=== PATIENT | male | born 1965 | race Caucasian/White ===

== ENCOUNTER 2017-12-23 13:47 | Emergency (ER) | payer MEDICARE, MEDICAID ==
[~2017-12-23] VITALS: Ht 180.3 cm; Wt 90.7 kg
[~2017-12-23 13:47] MED LIST: ALPRAZOLAM1 MG ORAL; AMOXICILLIN500 MG ORAL; ASPIRIN81 M1 PO; ATARAX25 MG ORAL; ATIVAN1 MG ORAL; ATIVAN1 MG PO; BUSPAR10 MG ORAL; CIPRO500 MG PO; CLARITIN-D 241 EACH PO; CLONAZEPAM2 MG PO; HYDROCHLOROTHIA25 MG PO; IBUPROFEN600 MG ORAL; NKM; PENICILLIN V P500 MG ORAL
[2017-12-23 14:31] VITALS: BP 149/90
[2017-12-23] MEDS ORDERED: Tetanus/Diptheria/Pertussis Vaccine 0.5ml Syr IM ONE (14:45)
[2017-12-23] MEDS ORDERED: HYDROcodone/Acetamin 7.5/325 tab ORAL ONE (14:45)
--- NOTE | 2017-12-23 15:56 | Emergency Room Report ---
History of Present Illness General Chief Complaint: Burn/Smoke Inhalation Source: Patient Present Illness HPI 52-year-old male presents to the emergency department complaining of 10 out of 10 in severity pain, erythema and blisters that have since popped 3 days. Patient reports that [place] and sustained sunburn to the bilateral anterior shins, ankle and foot. Patient reports pain is primarily on the right foot where he had 2 large blisters that he drain on its own. Patient reports progressive erythema, increased temperature to palpation and tenderness to palpation. Patient reports pain is exacerbated upon touch. He does not know what a tetanus vaccination is so he is unable to estimate when he last received one if at all. Denies CP, Palpitations, LOC, AMS, dizziness, Changes in Vision, Sensation, paresthesias, or a sudden severe headache. Allergies: Coded Allergies: No Known Allergies (Unverified , 06/26/12) Patient History Past Medical History: see triage record Past Surgical History: none Pertinent Family History: none Reviewed Nursing Documentation: PMH: Agreed; PSxH: Agreed Nursing Documentation-PMH Past Medical History: No History, Except For Hx Cardiac Problems: Yes Hx Hypertension: Yes Hx Neurological Problems: Yes - ANXIETY Review of Systems All Other Systems: negative except mentioned in HPI Physical Exam Vital Signs Date Time Temp Pulse Resp B/P (MAP) Pulse Ox O2 Delivery O2 Flow Rate FiO2 12/23/17 14:15 98.5 107 26 149/90 95 Room Air 98.4 Sp02 EP Interpretation: reviewed, normal General Appearance: no apparent distress, alert, GCS 15, non-toxic Head: normocephalic, atraumatic ENT: hearing grossly normal, normal voice Neck: full range of motion Respiratory: chest non-tender, lungs clear, normal breath sounds, speaking full sentences Cardiovascular #1: regular rate, rhythm, normal capillary refill Musculoskeletal: back normal, gait/station normal, normal range of motion, non- tender Neurologic: alert, oriented x3, responsive, motor strength/tone normal, sensory intact, speech normal, grossly normal Psychiatric: judgement/insight normal Skin: no rash, warm/dry, well hydrated, murphy - 2 -degree burn covering 4 % of the BSA, non-circumferential on the right anterior Guzman and dorsal foot. 2 large sized open bullae. and first degree erythema covering 4% of the left anterior guzman/ dorsal foot Medical Decision Making PA Attestation Dr. Hall is my supervising Physician whom patient management has been discussed with. Diagnostic Impression: Primary Impression: Sunburn of second degree Additional Impression: Cellulitis Qualified Codes: L03.90 - Cellulitis, unspecified ER Course 52-year-old male presents to the emergency department complaining of 10 out of 10 in severity pain, erythema and blisters that have since popped 3 days. Patient reports that he [place] the beach [place] 45 minutes and sustained sunburn to the bilateral anterior shins, ankle and foot. Patient reports pain is primarily on the right foot where he had 2 large blisters that he drain on its own. Patient reports progressive erythema, increased temperature to palpation and tenderness to palpation. Patient reports pain is exacerbated upon touch. He does not know what a tetanus vaccination is so he is unable to estimate when he last received one if at all. Denies CP, Palpitations, LOC, AMS, dizziness, Changes in Vision, Sensation, paresthesias, or a sudden severe headache. Ddx considered but are not limited to cellulitis, burn, Septic Joing, fracture, d/L, gout, fungal infection, DVT Vital signs: are WNL, pt. is afebrile H&PE are most consistent with : 2 -degree burn covering 4 % of the BSA, non- circumferential on the right anterior Guzman and dorsal foot. 2 large sized open bullae. and first degree erythema covering 4% of the left anterior guzman/ dorsal foot ORDERS: none required at this time, the diagnosis is clinical ED INTERVENTIONS: -Tetanus vaccination is administered Wound cleaning and irrigation performed Burn cream was applied Pain medication by mouth Sterile dressing applied by RN Discussed with this patient conservative treatment with antibiotics and burn cream discussed follow-up within 3-5 days with primary care provider. DISCHARGE: At this time pt. is stable for d/c to home. Will provide printed patient care instructions, and any necessary prescriptions. Care plan and follow up instructions have been discussed with the patient prior to discharge. Last Vital Signs Date Time Temp Pulse Resp B/P (MAP) Pulse Ox O2 Delivery O2 Flow Rate FiO2 12/23/17 14:52 98.4 12/23/17 14:31 107 26 149/90 95 Room Air Disposition: HOME, SELF-CARE Condition: Stable Scripts Ibuprofen* (MOTRIN*) 400 Mg Tablet 400 MG ORAL THREE TIMES A DAY, #20 TAB 0 Refills Prov: Alicia Gutierrez 12/23/17 Hydrocodone Bit/Acetaminophen 5-325* (NORCO 5-325*) 1 Each Tablet 1 TAB ORAL Q6H PRN for For Pain, #9 TAB 0 Refills Prov: Alicia Gutierrez 12/23/17 Silver Sulfadiazine (SILVADENE) 20 Gm Cream..g. 1 APPLIC TP BID, #20 GM Prov: Alicia Gutierrez 12/23/17 Trimethoprim/Sulfamethoxazole 160/800* (BACTRIM DS TABLET*) 1 Each Tablet 1 TAB ORAL TWICE A DAY for 7 Days, #14 TAB Prov: Alicia Gutierrez 12/23/17 Cephalexin* (KEFLEX*) 500 Mg Capsule 500 MG ORAL EVERY 12 HOURS for 7 Days, #14 CAP 0 Refills Prov: Alicia Gutierrez 12/23/17 Patient Instructions: Second-Degree Burn, Burn Care Additional Instructions: Take medications as directed. Follow up with a Primary Care Provider in 3-5 days, even if your symptoms have resolved. --Please review list of primary care clinics, if you do not already have a primary care provider Return sooner to ED if new symptoms occur, or current symptoms become worse. - Please note that this Emergency Department Report was dictated using [employer] unit operator technology software, occasionally this can lead to erroneous entry secondary to interpretation by the dictation equipment. Alicia Gutierrez Dec 23, 2017 15:56
[2017-12-23] MEDS ORDERED: BACTRIM DS TAB1 EAC1 ORAL (15:57)
[2017-12-23] MEDS ORDERED: CEPHALEXIN500 MG ORAL (15:57)
[2017-12-23] MEDS ORDERED: SILVADENE20 GM TP (15:57)
[2017-12-23] MEDS ORDERED: IBUPROFEN400 MG ORAL (16:02)
[2017-12-23] MEDS ORDERED: NORCO 5-325 TA1 EACH ORAL (16:02)
[2017-12-23 16:08] VITALS: BP 145/87
== END 2017-12-23 16:15 | disposition home or self-care (01) ==
LOC: EMR 16:11
DX: L55.1 Sunburn of second degree (principal); L03.116 Cellulitis of left lower limb; Z23 Encounter for immunization; I10 Essential (primary) hypertension; F41.9 Anxiety disorder, unspecified
CPT/HCPCS: 90471; 90715; 99284

== ENCOUNTER 2018-04-18 00:59 | Emergency (ER) | payer MEDICARE, MEDICAID ==
[~2018-04-18] VITALS: Ht 177.8 cm; Wt 88.5 kg
[~2018-04-18 00:59] MED LIST changes: +BACTRIM DS TAB1 EAC1 ORAL; +CEPHALEXIN500 MG ORAL; +IBUPROFEN400 MG ORAL; +NORCO 5-325 TA1 EACH ORAL; +SILVADENE20 GM TP
--- NOTE | 2018-04-18 01:26 | Emergency Room Report ---
History of Present Illness General Chief Complaint: Syncope Source: Patient Present Illness HPI Is a 53-year-old male with history anxiety and also alcohol abuse. He presents with chief complaint of syncopal. This occurred around 6 PM while he was at a grocery store applying for a job. He said he get very sweaty and dizzy. He said he passed out. Unknown trauma. He claimed hit his head but he does not remember. He is able to go home and got anxious tonight and call around his friend was told to come into the hospital be checked out. Denies any chest pain. Denies any nausea vomiting. Denies any palpitation. Allergies: Coded Allergies: No Known Allergies (Unverified , 06/26/12) Patient History Past Medical History: see triage record, old chart reviewed, HTN, psych hx Past Surgical History: other Pertinent Family History: none Social History: Reports: alcohol use Immunizations: other Reviewed Nursing Documentation: PMH: Agreed; PSxH: Agreed Nursing Documentation-PMH Hx Cardiac Problems: Yes Hx Hypertension: Yes Hx Neurological Problems: Yes - ANXIETY, bipolar Review of Systems Eye: Denies: eye pain, blurred vision ENT: Denies: ear pain, nose congestion, throat swelling Respiratory: Denies: cough, shortness of breath Cardiovascular: Reports: syncope; Denies: chest pain, palpitations Gastrointestinal: Denies: abdominal pain, diarrhea, nausea, vomiting Musculoskeletal: Denies: back pain, joint pain Skin: Denies: rash Neurological: Denies: headache, numbness Endocrine: Denies: increased thirst, increased urine Hematologic/Lymphatic: Denies: easy bruising All Other Systems: negative except mentioned in HPI Physical Exam Vital Signs Date Time Temp Pulse Resp B/P (MAP) Pulse Ox O2 Delivery O2 Flow Rate FiO2 04/18/18 01:03 98.6 113 18 133/86 97 Room Air 98.6 vitals with tachycardia Sp02 EP Interpretation: reviewed, normal General Appearance: well appearing, no apparent distress, alert Head: normocephalic, atraumatic Eyes: bilateral eye PERRL, bilateral eye EOMI ENT: hearing grossly normal, normal pharynx Neck: full range of motion, supple, no meningismus Respiratory: chest non-tender, lungs clear, normal breath sounds Cardiovascular #1: regular rate, rhythm, no murmur Gastrointestinal: normal bowel sounds, non tender, no mass, no organomegaly, no bruit, non-distended Musculoskeletal: back normal, gait/station normal, normal range of motion Psychiatric: anxious Skin: warm/dry Medical Decision Making Diagnostic Impression: Primary Impression: Syncope Qualified Codes: R55 - Syncope and collapse Additional Impressions: Alcohol intoxication Qualified Codes: F10.920 - Alcohol use, unspecified with intoxication, uncomplicated Alcohol abuse UTI (urinary tract infection) Qualified Codes: N30.00 - Acute cystitis without hematuria ER Course Patient presents with syncope. No evidence of any trauma. CT head is negative. He may have had anxiety/panic attack versus alcohol intoxication. We 'll discharge home. Lab Results Impression labs with elevated alcohol EKG Diagnostic Results Rate: normal Rhythm: NSR ST Segments: no acute changes Rhythm Strip Diag. Results Rhythm Strip Time: 01:25 EP Interpretation: yes Rate: 95 Rhythm: NSR, no PVC's, no ectopy CT/MRI/US Diagnostic Results CT/MRI/US Diagnostic Results : Imaging Test Ordered: ct head Impression negative per radiologist Last Vital Signs Date Time Temp Pulse Resp B/P (MAP) Pulse Ox O2 Delivery O2 Flow Rate FiO2 04/18/18 01:03 98.6 113 18 133/86 97 Room Air 98.6 Status: improved Disposition: HOME, SELF-CARE Condition: Stable Scripts Cephalexin* (KEFLEX*) 500 Mg Capsule 500 MG ORAL TID, #21 CAP Prov: AARON KHALIL M.D. 04/18/18 Patient Instructions: Syncope Additional Instructions: Stop using alcohol. Follow-up your doctor in 7 days. Return if worse. AARON KHALIL M.D. Apr 18, 2018 01:26
[2018-04-18 02:09] LABS: BASOPHILS % (AUTO) 0.8 % (0.0-2.0); EOSINOPHILS % (AUTO) 0.5 % (0.0-3.0); HEMATOCRIT 39.1 % (42.0-52.0); HEMOGLOBIN 14.3 G/DL (14.2-18.0); LYMPHOCYTES % (AUTO) 29.6 % (20.0-45.0); MEAN CORPUSCULAR VOLUME 106 FL (80-99); MONOCYTES % (AUTO) 10.9 % (1.0-10.0); NEUTROPHILS % (AUTO) 58.2 % (45.0-75.0); PLATELET COUNT 155 K/UL (150-450); RED BLOOD COUNT 3.69 M/UL (4.70-6.10); RED CELL DISTRIBUTION WIDTH 11.7 % (11.6-14.8); WHITE BLOOD COUNT 10.4 K/UL (4.8-10.8)
[2018-04-18 02:10] LABS: ANION GAP 16 mmol/L (5-15); BLOOD UREA NITROGEN 20 mg/dL (7-18); CALCIUM 9.9 MG/DL (8.5-10.1); CARBON DIOXIDE 22 MMOL/L (21-32); CHLORIDE 100 MMOL/L (98-107); CREATININE 1.4 MG/DL (0.55-1.30); POTASSIUM 3.7 MMOL/L (3.5-5.1); SODIUM 138 MMOL/L (136-145)
[2018-04-18 02:11] LABS: BILIRUBIN, URINE 1+ (NEGATIVE); GLUCOSE, URINE (UA) NEGATIVE (NEGATIVE); KETONES,URINE 1+ (NEGATIVE); LEUKOCYTE ESTERASE ,URINE 2+ (NEGATIVE); NITRITE,URINE NEGATIVE (NEGATIVE); PH,URINE 5 (4.5-8.0); PROTEIN,URINE 2+ (NEGATIVE); UROBILINOGEN,URINE 4 MG/DL (NORMAL)
[2018-04-18 02:12] LABS: APPEARANCE,URINE SLIGHTLY CLOUDY; COLOR,URINE YELLOW
[2018-04-18] MEDS ORDERED: CEPHALEXIN500 MG ORAL (03:18)
[2018-04-18 03:28] VITALS: BP_SYST 131; BP_SYST 133; BP_DIAS 86
--- NOTE | 2018-04-18 08:50 | Diagnostic Imaging Report ---
Indication: Syncope Technique: Continuous helical CT scanning of the head was performed utilizing automated exposure control without intravenous contrast material. Axial and coronal reconstructions were obtained. Comparison: 02/04/2013 CT dose: Total DLP 1417.26 mGycm; CTDI vol 70.38 mGy Findings: There is no acute intracranial hemorrhage, mass effect or cortical edema. The ventricles, cisterns and sulci are within normal limits for age and stable compared to the prior exam. The previously described hypodensities in the lauren and midbrain are not definitively seen and were likely artifactual. Visualized mastoid air cells and paranasal sinuses are unremarkable. No focal lesions of the bony calvarium or soft tissues of the scalp are seen. IMPRESSION: No evidence of acute intracranial hemorrhage, mass effect or cortical edema. MRI may be obtained for more sensitive evaluation as clinically indicated. The CT scanner at [facility] is accredited by the [employer] and the scans are performed using protocols designed to limit radiation exposure to as low as reasonably achievable to attain images of sufficient resolution adequate for diagnostic evaluation.
--- NOTE | 2018-04-19 16:08 | Cardiology Report ---
APPROVED REPORT EKG Measurement Heart [id number] Normal sinus rhythm Normal ECG
== END 2018-04-18 03:30 | disposition home or self-care (01) ==
LOC: EMR 03:28
DX: R55 Syncope and collapse (principal); F10.929 Alcohol use, unspecified with intoxication, unspecified; I10 Essential (primary) hypertension; F41.9 Anxiety disorder, unspecified; F31.9 Bipolar disorder, unspecified
CPT/HCPCS: 36415; 70450; 80048; 80307; 81001; 84484; 85025; 87086; 93005; 99284; G0480; 80329

== ENCOUNTER 2018-05-04 06:06 | Emergency (ER) | payer MEDICARE, MEDICAID ==
[~2018-05-04] VITALS: Ht 172.7 cm; Wt 90.7 kg
[2018-05-04 06:27] VITALS: BP 135/65
--- NOTE | 2018-05-04 06:38 | Emergency Room Report ---
History of Present Illness General Chief Complaint: General Complaint Source: Patient Present Illness HPI This patient is here c/o loud noise in his head that is preventing him from sleeping. He says he hasn't slept for two days. He also relates same information that he related on last visit two weeks ago which was likely anxiety. Today he is anxious but able to clearly communicate calmly. He denies hearing voices. He "requests an MRI of his head. Like we did last time." There is: no trauma, no fever, no headache, no neck pain. Pt. is compliant with his bp med. He takes another medicine "for his brain" but does not know the same. He has somewhere to stay. No cp, sob, abd pain, normal po intake, normal bm/uo. Allergies: Coded Allergies: No Known Allergies (Unverified , 06/26/12) Nursing Documentation-PMH Hx Cardiac Problems: Yes Hx Hypertension: Yes Hx Neurological Problems: Yes - ANXIETY, bipolar Review of Systems Constitutional: Reports: no symptoms Eye: Reports: no symptoms ENT: Reports: no symptoms Respiratory: Reports: no symptoms Cardiovascular: Reports: no symptoms Gastrointestinal: Reports: no symptoms Genitourinary: Reports: no symptoms Musculoskeletal: Reports: no symptoms Skin: Reports: no symptoms Psychiatric: Reports: no symptoms, see HPI, prior hx, anxiety Neurological: Reports: no symptoms Endocrine: Reports: no symptoms Hematologic/Lymphatic: Reports: no symptoms Allergic: Reports: no symptoms All Other Systems: negative except mentioned in HPI Physical Exam Vital Signs Date Time Temp Pulse Resp B/P (MAP) Pulse Ox O2 Delivery O2 Flow Rate FiO2 05/04/18 06:07 98.5 115 18 132/92 98 Room Air 98.4 Sp02 EP Interpretation: reviewed, normal General Appearance: normal inspection, well appearing, no apparent distress, alert, GCS 15, non-toxic Head: normocephalic, atraumatic Eyes: bilateral eye normal inspection, bilateral eye PERRL, bilateral eye EOMI ENT: normal ENT inspection, hearing grossly normal, normal pharynx, no angioedema, normal voice, moist mucus membranes Neck: normal inspection, full range of motion, supple, no meningismus, no bony tend Respiratory: normal inspection, lungs clear, normal breath sounds, no rhonchi, no respiratory distress, no retraction, no accessory muscle use, no wheezing Cardiovascular #1: normal inspection, regular rate, rhythm, no edema Gastrointestinal: normal inspection, normal bowel sounds, non tender, soft, no mass, non-distended Musculoskeletal: gait/station normal, normal range of motion Neurologic: normal inspection, alert, oriented x3, responsive, motor strength/ tone normal Psychiatric: memory normal, no suicidal/homicidal ideation, anxious, other - not s/h/gravely disabled. cognitively intact. denies hallucinations. no pressured speech, no delusions, no flight of ideas. Suicide Risk Assessment: Suicidal Ideation: No Had intent to initiate attempt: No Pt's plan for suicide attempt: No Has means to complete attempt: No Skin: normal inspection, normal color, no rash, warm/dry Medical Decision Making Diagnostic Impression: Primary Impression: Bipolar disorder ER Course I offered patient to be evaluated for voluntary psych hosp. He refuses. He says he had a bad experience ([place]) in the past. Prefers d/c. Still wants an MRI. Last Vital Signs Date Time Temp Pulse Resp B/P (MAP) Pulse Ox O2 Delivery O2 Flow Rate FiO2 05/04/18 06:27 97.7 14 135/65 99 Room Air 97.7 05/04/18 06:07 115 Disposition: HOME, SELF-CARE Condition: Stable Patient Instructions: Bipolar Disorder Osiel Mack M.D. May 04, 2018 06:38
[2018-05-04 06:58] VITALS: BP 147/84
[2018-05-04 07:25] VITALS: BP_SYST 132; BP_SYST 147; BP_DIAS 84
== END 2018-05-04 07:25 | disposition home or self-care (01) ==
LOC: EMR 06:40
DX: F31.9 Bipolar disorder, unspecified (principal); I10 Essential (primary) hypertension; I51.89 Other ill-defined heart diseases
CPT/HCPCS: 99282

== ENCOUNTER 2018-08-09 21:13 | Emergency (ER) | payer MEDICARE, MEDICAID ==
[~2018-08-09] VITALS: Ht 175.3 cm; Wt 90.7 kg
[2018-08-09] MEDS ORDERED: NKM (22:08)
[2018-08-09] MEDS ORDERED: Clindamycin 150mg cap ORAL ONE (22:15)
[2018-08-09] MEDS ORDERED: Bacitracin Oint UD TOPIC ONE (22:15)
[2018-08-09 22:20] VITALS: BP 132/80
[2018-08-09] MEDS ORDERED: CLINDAMYCIN HC300 MG ORAL (22:29)
[2018-08-09] MEDS ORDERED: BACITRACIN15 GM TOPIC (22:32)
[2018-08-09 22:37] VITALS: BP 132/80
--- NOTE | 2018-08-10 05:15 | Emergency Room Report ---
History of Present Illness General Chief Complaint: Skin Rash/Abscess Source: Patient Present Illness HPI 53-year-old male presents ED complaining of pain to his right ankle times one week. States that there is a cut to his right ankle which came from some new shoes which he did not take care of and now got progressively worse. Pain is throbbing, 8 out of 10, nonradiating. Denies fevers or chills. Denies history of diabetes. Denies any discharge. No other aggravating relieving factors. Denies any other associated symptoms Allergies: Coded Allergies: No Known Allergies (Unverified , 06/26/12) Patient History Past Medical History: HTN, psych hx Past Surgical History: none Pertinent Family History: none Social History: Denies: smoking, alcohol use, drug use Immunizations: UTD Reviewed Nursing Documentation: PMH: Agreed; PSxH: Agreed Nursing Documentation-PMH Past Medical History: No History, Except For Hx Cardiac Problems: Yes Hx Hypertension: Yes Hx Neurological Problems: Yes - ANXIETY, bipolar Review of Systems All Other Systems: negative except mentioned in HPI Physical Exam Vital Signs Date Time Temp Pulse Resp B/P (MAP) Pulse Ox O2 Delivery O2 Flow Rate FiO2 08/09/18 22:03 98.1 100 18 123/77 95 Sp02 EP Interpretation: reviewed, normal General Appearance: no apparent distress, alert, GCS 15, non-toxic Head: normocephalic Eyes: bilateral eye normal inspection, bilateral eye PERRL ENT: normal ENT inspection Neck: normal inspection Respiratory: normal inspection Cardiovascular #1: normal inspection Gastrointestinal: normal inspection Rectal: deferred Genitourinary: normal inspection Musculoskeletal: swelling - R ankle Neurologic: alert, oriented x3, responsive, motor strength/tone normal, sensory intact, speech normal Psychiatric: judgement/insight normal, memory normal, mood/affect normal, no suicidal/homicidal ideation Skin: other - 1cm ulceration to R ankle, surrounding erythema/induration. no fluctuance or discharge Lymphatic: normal inspection Medical Decision Making Diagnostic Impression: Primary Impression: Cellulitis of foot ER Course Hospital Course 53-year-old male presents to ED with redness, swelling to right ankle Differential diagnoses include: Cellulitis, dermatitis, insect bite, abscess Clinical course Patient placed on stretcher. After initial history, physical exam reveals a middle aged male in no acute distress. On exam there is a ulceration to the R ankle with surrounding erythema and induration. There is no fluctuance. Full range of motion is noted in the right ankle and there is no concern for any signs of infection to the joint. Discussed findings with patient. Will require antibiotics. However patient is afebrile and nontoxic. Patient is a candidate for outpatient antibiotics. Wound cleaned and bacitracin applied. Dressing applied. safe for discharge with close outpatient followup Diagnosis - cellulitis of foot stable and discharged to home with prescription for clindamycin, bacitracin. Instructed to followup with PMD. Instructed return to ED if symptoms recur or worsen Last Vital Signs Date Time Temp Pulse Resp B/P (MAP) Pulse Ox O2 Delivery O2 Flow Rate FiO2 08/09/18 22:37 98.0 78 18 132/80 98 Status: improved Disposition: HOME, SELF-CARE Condition: Stable Scripts Bacitracin (Bacitracin) 28.4 Gm Oint...g. 1 APPLIC TOPIC THREE TIMES A DAY, #28.4 GM Prov: Nate Geronimo MD 08/09/18 Clindamycin Hcl (CLINDAMYCIN HCL) 300 Mg Capsule 300 MG ORAL THREE TIMES A DAY, #21 CAP Prov: Nate Geronimo MD 08/09/18 Referrals: NOT CHOSEN IPA/,REFERRING (PCP) Patient Instructions: Abscess, Psil-vn-Dmao Nate Geronimo MD Aug 10, 2018 05:15
== END 2018-08-09 22:37 | disposition home or self-care (01) ==
LOC: EMR 22:00
DX: L03.115 Cellulitis of right lower limb (principal); I10 Essential (primary) hypertension; F41.9 Anxiety disorder, unspecified
CPT/HCPCS: 99283

== ENCOUNTER 2018-08-13 00:15 | Emergency (ER) | payer MEDICARE, MEDICAID ==
[~2018-08-13] VITALS: Ht 175.3 cm; Wt 90.7 kg
[~2018-08-13 00:15] MED LIST changes: +BACITRACIN15 GM TOPIC; +CLINDAMYCIN HC300 MG ORAL
[2018-08-13 00:45] VITALS: BP 147/89
--- NOTE | 2018-08-13 00:45 | Emergency Room Report ---
History of Present Illness General Chief Complaint: To Be Triaged Source: Patient Present Illness HPI Pt. was here two days ago for same. He started antibiotics yesterday. He thinks it is not better yet so he returned to ED. He has not been elevating leg. No fever. No additional injury/trauma. No cp, sob. Allergies: Coded Allergies: No Known Allergies (Unverified , 06/26/12) Patient History Past Medical History: see triage record Social History: Reports: alcohol use Nursing Documentation-PMH Hx Cardiac Problems: Yes Hx Hypertension: Yes Hx Neurological Problems: Yes - ANXIETY, bipolar Review of Systems Constitutional: Reports: see HPI Eye: Reports: no symptoms ENT: Reports: no symptoms Respiratory: Reports: no symptoms Cardiovascular: Reports: no symptoms Gastrointestinal: Reports: no symptoms Genitourinary: Reports: no symptoms Musculoskeletal: Reports: see HPI Skin: Reports: no symptoms Psychiatric: Reports: no symptoms Neurological: Reports: no symptoms Endocrine: Reports: no symptoms Hematologic/Lymphatic: Reports: no symptoms Allergic: Reports: no symptoms All Other Systems: negative except mentioned in HPI Physical Exam Sp02 EP Interpretation: reviewed, normal General Appearance: normal inspection, well appearing, no apparent distress, alert, GCS 15, non-toxic Head: normocephalic, atraumatic Eyes: bilateral eye normal inspection, bilateral eye PERRL, bilateral eye EOMI ENT: normal ENT inspection, hearing grossly normal, normal pharynx, no angioedema, normal voice, moist mucus membranes Neck: normal inspection, full range of motion, supple, no meningismus, no bony tend Respiratory: normal inspection, lungs clear, normal breath sounds, no rhonchi, no respiratory distress, no retraction, no accessory muscle use, no wheezing Cardiovascular #1: normal inspection, regular rate, rhythm, no edema Gastrointestinal: normal inspection, normal bowel sounds, non tender, soft, no mass, non-distended Musculoskeletal: gait/station normal, swelling, other - chronic venous changes lower half left leg, +mild swelling/erythema. no warmth, no fluctuance Neurologic: normal inspection, alert, oriented x3, responsive, motor strength/ tone normal Psychiatric: normal inspection, memory normal, no delusions, anxious, other - mild alcohol intoxication; limited insight, poor judgment Suicide Risk Assessment: Suicidal Ideation: No Had intent to initiate attempt: No Pt's plan for suicide attempt: No Has means to complete attempt: No Skin: normal inspection, normal color, no rash, warm/dry Medical Decision Making Diagnostic Impression: Primary Impression: Cellulitis of foot Additional Impressions: Bipolar disorder Alcohol abuse ER Course Pt. advised to 1. keep taking antibiotics as prescribed 2. elevate leg 3. stop drinking 4. f/u PMD (not ED) next week Disposition: HOME, SELF-CARE Condition: Stable Referrals: NON PHYSICIAN (PCP) Patient Instructions: Cellulitis, [id number] Osiel Mcak M.D. Aug 13, 2018 00:45
[2018-08-13 00:53] VITALS: BP 147/89
== END 2018-08-13 00:53 | disposition home or self-care (01) ==
LOC: EMR 00:39
DX: L03.119 Cellulitis of unspecified part of limb (principal); F31.9 Bipolar disorder, unspecified; F10.10 Alcohol abuse, uncomplicated; F41.9 Anxiety disorder, unspecified; I10 Essential (primary) hypertension
CPT/HCPCS: 99282

== ENCOUNTER 2018-08-21 04:17 | Emergency (ER) | payer MEDICARE, MEDICAID ==
[~2018-08-21] VITALS: Ht 180.3 cm; Wt 90.7 kg
[2018-08-21 04:30] VITALS: BP 147/94
--- NOTE | 2018-08-21 04:52 | Emergency Room Report ---
History of Present Illness General Chief Complaint: Skin Rash/Abscess Present Illness HPI Mr. Mcgrath is a very pleasant gentleman with history of bipolar affective disorder, alcohol abuse who presents with left lower extremity rash. Recently completed course of Cleocin oral antibiotics and bacitracin ointment. Also completed a course of cephalexin. He is concerned possible allergic reaction because he spots on his chest in upper leg. He has ulcer and redness at the left foot. He understands his health has not been ideal due to his alcohol use. Allergies: Coded Allergies: No Known Allergies (Unverified , 06/26/12) Patient History Past Medical History: old chart reviewed Social History: Reports: alcohol use Reviewed Nursing Documentation: PMH: Agreed; PSxH: Agreed Nursing Documentation-PMH Hx Cardiac Problems: Yes Hx Hypertension: Yes Hx Neurological Problems: Yes - ANXIETY, bipolar Review of Systems Constitutional: Denies: fever, malaise Skin: Reports: rash Physical Exam Vital Signs Date Time Temp Pulse Resp B/P (MAP) Pulse Ox O2 Delivery O2 Flow Rate FiO2 08/21/18 04:27 97.9 114 16 147/94 96 Room Air Sp02 EP Interpretation: reviewed, normal General Appearance: normal inspection, well appearing, no apparent distress, alert, GCS 15, non-toxic Head: normocephalic, atraumatic ENT: hearing grossly normal, normal pharynx, no angioedema, normal voice Neck: normal inspection, full range of motion, supple Respiratory: normal inspection, no respiratory distress Neurologic: alert, oriented x3 Psychiatric: normal inspection, judgement/insight normal, memory normal Skin: other - Healing ulcer left lateral heel with erythema involving the feet , papular rash involving his upper leg thigh and chest Medical Decision Making Diagnostic Impression: Primary Impression: Cellulitis of foot Additional Impression: Contact dermatitis ER Course Mr. Mcgrath has obvious cellulitis of foot. Suspect papular rash to be contact dermatitis. rx: bactrim , hydrocortisone cream Last Vital Signs Date Time Temp Pulse Resp B/P (MAP) Pulse Ox O2 Delivery O2 Flow Rate FiO2 08/21/18 04:30 97.9 100 16 147/94 96 Room Air Disposition: HOME, SELF-CARE Referrals: NOT CHOSEN IPA/,REFERRING (PCP) Isabela Lemus MD Aug 21, 2018 04:52
[2018-08-21] MEDS ORDERED: BACTRIM DS TAB1 EAC1 ORAL (04:54)
[2018-08-21] MEDS ORDERED: ANTI-ITCH28 G1 TP (04:54)
[2018-08-21 05:01] VITALS: BP 147/94
== END 2018-08-21 05:00 | disposition home or self-care (01) ==
LOC: EMR 04:40
DX: L25.9 Unspecified contact dermatitis, unspecified cause (principal); L03.116 Cellulitis of left lower limb; I10 Essential (primary) hypertension; F41.9 Anxiety disorder, unspecified; F31.9 Bipolar disorder, unspecified
CPT/HCPCS: 99282

== ENCOUNTER 2018-11-09 08:55 | Emergency (ER) | payer MEDICARE, MEDICAID ==
[~2018-11-09] VITALS: Ht 175.3 cm; Wt 90.7 kg
[~2018-11-09 08:55] MED LIST changes: +ANTI-ITCH28 G1 TP
[2018-11-09] MEDS ORDERED: ATENOLOL25 MG ORAL (09:10)
--- NOTE | 2018-11-09 09:15 | NUR ---
ED Nurse Note: PT WALKED IN TO ER TODAY FROM HOME. AOX4. PT C/O DARK SPOTS THAT FORMED ON BILATERAL UPPER ARMS AND LEFT LEG X 2 DAYS AGO. PT DENIES ITCHING, PAIN OR DISCHARGE. SKIN IS CLEAN, DRY, AND INTACT. SPOTS NOT ELEVATED.
[2018-11-09 09:18] VITALS: BP 136/92
[2018-11-09 09:36] VITALS: BP 138/88
--- NOTE | 2018-11-09 09:37 | NUR ---
ED Nurse Note: PT LAYING PEACEFULLY IN BED IN NAD. AOX4. DISCHARGE PAPERWORK EXPLAINED TO PT. PT VERBALIZES UNDERSTANDING AND ALL QUESTIONS ANSWERED. PT REFUSED TO SIGN DISCHARGE PAPERWORK AFTER IT WAS EXPLAINED AND ALL QUESTIONS WERE ANSWERED. PT WALKED OUT OF ER WITH STEADY GAIT AND ALL BELONGINGS.
--- NOTE | 2018-11-11 20:06 | Emergency Room Report ---
History of Present Illness General Chief Complaint: Skin Rash/Abscess Source: Patient Present Illness HPI Patient is a 53-year-old male presented after increased skin rash. Patient states that he had been concerned that he had cancer to the skin. Patient had noticed some changes in the mole. He denies any fever. He reports having multiple small skin lesions. He reports having family history of skin cancer. He denies any acute injury pain or swelling.. Patient states he had noted more dark lesions to his right upper extremity. Allergies: Coded Allergies: No Known Allergies (Unverified , 06/26/12) Patient History Past Medical History: see triage record Reviewed Nursing Documentation: PMH: Agreed; PSxH: Agreed Nursing Documentation-PMH Past Medical History: No History, Except For Hx Cardiac Problems: Yes Hx Hypertension: Yes Hx Neurological Problems: Yes - ANXIETY, bipolar Review of Systems All Other Systems: negative except mentioned in HPI Physical Exam Vital Signs Date Time Temp Pulse Resp B/P (MAP) Pulse Ox O2 Delivery O2 Flow Rate FiO2 11/09/18 08:58 98.2 95 17 148/100 99 Room Air General Appearance: well appearing, no apparent distress, alert, GCS 15, non- toxic Head: normocephalic, atraumatic ENT: hearing grossly normal, normal voice Neck: full range of motion, supple Respiratory: no respiratory distress, speaking full sentences Musculoskeletal: no calf tenderness Neurologic: normal inspection, alert, oriented x3, responsive, normal gait Psychiatric: mood/affect normal Skin: no rash, other - Multiple pigmented lesions to the right upper extremity. Medical Decision Making Diagnostic Impression: Primary Impression: Skin rash ER Course Patient presented for skin lesions. Differential diagnosis include was not limited to melanoma, solar lentigo, nevi among others. Patient has a benign exam and does not appear to require any further imaging or laboratory testing at this time. Patient does not have any definite acute medical condition. Patient was noted to have some concerning looking lesions and he was advised to follow-up with dermatology or a general surgeon. Patient does not appear to have any conditions requiring inpatient management at this time. Last Vital Signs Date Time Temp Pulse Resp B/P (MAP) Pulse Ox O2 Delivery O2 Flow Rate FiO2 11/09/18 09:36 98.3 86 17 138/88 99 Room Air Status: unchanged Disposition: HOME, SELF-CARE Condition: Stable Referrals: NOT CHOSEN IPA/MD,REFERRING (PCP) Patient Instructions: Rash Additional Instructions: Follow up with dermatology Dewayne Cheng MD Nov 11, 2018 20:06
== END 2018-11-09 09:35 | disposition home or self-care (01) ==
LOC: EMR 09:30
DX: R21 Rash and other nonspecific skin eruption (principal); I10 Essential (primary) hypertension; F41.9 Anxiety disorder, unspecified; F31.9 Bipolar disorder, unspecified
CPT/HCPCS: 99281

== ENCOUNTER 2019-02-05 19:56 | Inpatient (IN) | payer MEDICARE, MEDICAID ==
[~2019-02-05] VITALS: Ht 167.6 cm; Wt 74.8 kg
[~2019-02-05 19:56] MED LIST changes: +ATENOLOL25 MG ORAL
[2019-02-05 20:00] VITALS: BP 95/69
--- NOTE | 2019-02-05 20:00 | NUR ---
ED Nurse Note: pt came to ed from home c/o of vomiting x2 days and vomiting with blood x1 day. pt has left arms lacerations of unknown origin and old bruises on chest prior to arrival. pt denies any past medical history.
[2019-02-05 20:11] LABS: HEMATOCRIT 27.8 % (42.0-52.0); HEMOGLOBIN 10.1 G/DL (14.2-18.0); MEAN CORPUSCULAR VOLUME 105 FL (80-99); PLATELET COUNT 82 K/UL (150-450); RED BLOOD COUNT 2.66 M/UL (4.70-6.10); RED CELL DISTRIBUTION WIDTH 12.1 % (11.6-14.8); WHITE BLOOD COUNT 14.4 K/UL (4.8-10.8)
[2019-02-05] MEDS ORDERED: LORazepam Inj 2mg/ml 1ml IV ONE (20:15)
--- NOTE | 2019-02-05 20:15 | NUR ---
ED Nurse Note: reassessed pt about his past medical history post medication administration. pt was able to verbalize, HTN, anxiety, bipolar disorder, and previous alcoholism
--- NOTE | 2019-02-05 20:28 | Emergency Room Report ---
History of Present Illness General Chief Complaint: Gastrointestinal Bleed Source: Patient Present Illness HPI 54-year-old male presents ED for evaluation. Brought in by EMS for vomiting. Has had multiple episodes of vomiting over the last few days. Notes streaks of blood in his vomit today. denies abdominal pain. Denies any blood in stool. States he does drink alcohol occasionally. States he feels very anxious. History of anxiety. Denies drug use. No other aggravating relieving factors. Denies any other associated symptoms Allergies: Coded Allergies: No Known Allergies (Unverified , 06/26/12) Patient History Past Medical History: none, HTN, psych hx Past Surgical History: none Pertinent Family History: none Social History: Denies: smoking, alcohol use, drug use Immunizations: UTD Reviewed Nursing Documentation: PMH: Agreed; PSxH: Agreed Nursing Documentation-PMH Past Medical History: No History, Except For Hx Cardiac Problems: Yes Hx Hypertension: Yes Hx Neurological Problems: Yes - ANXIETY, bipolar Review of Systems All Other Systems: negative except mentioned in HPI Physical Exam Vital Signs Date Time Temp Pulse Resp B/P (MAP) Pulse Ox O2 Delivery O2 Flow Rate FiO2 02/05/19 19:54 97.7 109 18 110/70 (83) 98 Sp02 EP Interpretation: reviewed, normal General Appearance: no apparent distress, alert, GCS 15, non-toxic Head: normocephalic, atraumatic Eyes: bilateral eye normal inspection, bilateral eye PERRL ENT: hearing grossly normal, normal pharynx, no angioedema, normal voice Neck: full range of motion, supple/symm/no masses Respiratory: chest non-tender, lungs clear, normal breath sounds, speaking full sentences Cardiovascular #1: regular rate, rhythm, no edema Cardiovascular #2: 2+ carotid (R), 2+ carotid (L), 2+ radial (R), 2+ radial (L) , 2+ dorsalis pedis (R), 2+ dorsalis pedis (L) Gastrointestinal: normal bowel sounds, non tender, soft, non-distended, no guarding, no rebound Rectal: deferred Genitourinary: normal inspection, no CVA tenderness Musculoskeletal: back normal, gait/station normal, normal range of motion, non- tender Neurologic: alert, oriented x3, responsive, motor strength/tone normal, sensory intact, speech normal Psychiatric: judgement/insight normal, memory normal, no suicidal/homicidal ideation, anxious Reflexes: 3+ bicep (R), 3+ bicep (L), 3+ tricep (R), 3+ tricep (L), 3+ knee (R) , 3+ knee (L) Skin: normal color, no rash, warm/dry, well hydrated Lymphatic: no adenopathy Medical Decision Making Diagnostic Impression: Primary Impression: Upper GI bleed Additional Impression: Thrombocytopenia ER Course Hospital Course 54 yo M presents with vomiting blood. h/o anxiety and alcohol use Differential diagnoses include: UGIB, LGIB, hemorrhoids Clinical course Patient placed on stretcher. night monitor. After initial history and physical I ordered labs, IV fluids, pepcid, zofran Labs - noted leukocytosis, Hb 10.1, Platelets 82. BUN/Cr elevated. There is significant drop in hemoglobin compared to recent ER visits. Along with thrombocytopenia and vomiting blood patient will be admitted for upper GI bleed and further evaluation I feel this is a highly complex case requiring extensive working including EKG/ Rhythm strip, Xray/CT/US, Blood/urine lab work, repeat exams while in ED, and administration of strong opiates/narcotics for pain control, admission to hospital or close patient follow up. Diagnosis - UGIB, thrombocytopenia, Patient admitted to telemetry in serious condition Labs Test 02/05/19 20:02 02/06/19 07:35 02/07/19 05:35 White Blood Count 14.4 K/UL (4.8-10.8) 6.8 K/UL (4.8-10.8) 5.7 K/UL (4.8-10.8) Red Blood Count 2.66 M/UL (4.70-6.10) 2.06 M/UL (4.70-6.10) 2.39 M/UL (4.70-6.10) Hemoglobin 10.1 G/DL (14.2-18.0) 7.8 G/DL (14.2-18.0) 8.5 G/DL (14.2-18.0) Hematocrit 27.8 % (42.0-52.0) 22.1 % (42.0-52.0) 24.5 % (42.0-52.0) Mean Corpuscular Volume 105 FL (80-99) 107 FL (80-99) 102 FL (80-99) Mean Corpuscular Hemoglobin 37.9 PG (27.0-31.0) 37.8 PG (27.0-31.0) 35.5 PG (27.0-31.0) Mean Corpuscular Hemoglobin Concent 36.2 G/DL (32.0-36.0) 35.2 G/DL (32.0-36.0) 34.8 G/DL (32.0-36.0) Red Cell Distribution Width 12.1 % (11.6-14.8) 12.6 % (11.6-14.8) 17.2 % (11.6-14.8) Platelet Count 82 K/UL (150-450) 56 K/UL (150-450) 54 K/UL (150-450) Mean Platelet Volume 5.5 FL (6.5-10.1) 7.8 FL (6.5-10.1) 7.0 FL (6.5-10.1) Neutrophils (%) (Auto) % (45.0-75.0) % (45.0-75.0) % (45.0-75.0) Lymphocytes (%) (Auto) % (20.0-45.0) % (20.0-45.0) % (20.0-45.0) Monocytes (%) (Auto) % (1.0-10.0) % (1.0-10.0) % (1.0-10.0) Eosinophils (%) (Auto) % (0.0-3.0) % (0.0-3.0) % (0.0-3.0) Basophils (%) (Auto) % (0.0-2.0) % (0.0-2.0) % (0.0-2.0) Differential Total Cells Counted 100 100 100 Neutrophils % (Manual) 67 % (45-75) 58 % (45-75) 59 % (45-75) Lymphocytes % (Manual) 25 % (20-45) 37 % (20-45) 35 % (20-45) Monocytes % (Manual) 8 % (1-10) 5 % (1-10) 5 % (1-10) Eosinophils % (Manual) 0 % (0-3) 0 % (0-3) 1 % (0-3) Basophils % (Manual) 0 % (0-2) 0 % (0-2) 0 % (0-2) Band Neutrophils 0 % (0-8) 0 % (0-8) 0 % (0-8) Platelet Estimate Decreased Decreased Decreased Platelet Morphology Normal Normal Normal Red Blood Cell Morphology Normal Prothrombin Time 12.0 SEC (9.30-11.50) 12.0 SEC (9.30-11.50) 12.6 SEC (9.30-11.50) Prothromb Time International Ratio 1.1 (0.9-1.1) 1.1 (0.9-1.1) 1.2 (0.9-1.1) Activated Partial Thromboplast Time 23 SEC (23-33) 22 SEC (23-33) 22 SEC (23-33) Sodium Level 138 MMOL/L (136-145) 141 MMOL/L (136-145) 141 MMOL/L (136-145) Potassium Level 3.8 MMOL/L (3.5-5.1) 3.5 MMOL/L (3.5-5.1) 3.4 MMOL/L (3.5-5.1) Chloride Level 98 MMOL/L (98-107) 106 MMOL/L (98-107) 107 MMOL/L (98-107) Carbon Dioxide Level 25 MMOL/L (21-32) 30 MMOL/L (21-32) 25 MMOL/L (21-32) Blood Urea Nitrogen 39 mg/dL (7-18) 37 mg/dL (7-18) 20 mg/dL (7-18) Creatinine 1.4 MG/DL (0.55-1.30) 1.1 MG/DL (0.55-1.30) 1.0 MG/DL (0.55-1.30) Estimat Glomerular Filtration Rate 52.4 mL/min (>60) > 60 mL/min (>60) > 60 mL/min (>60) Glucose Level 217 MG/DL (74-106) 116 MG/DL (74-106) 96 MG/DL (74-106) Calcium Level 9.2 MG/DL (8.5-10.1) 8.3 MG/DL (8.5-10.1) 8.4 MG/DL (8.5-10.1) Total Bilirubin 1.4 MG/DL (0.2-1.0) 1.1 MG/DL (0.2-1.0) 0.9 MG/DL (0.2-1.0) Direct Bilirubin 0.4 MG/DL (0.0-0.3) 0.4 MG/DL (0.0-0.3) Aspartate Amino Transf (AST/SGOT) 83 U/L (15-37) 61 U/L (15-37) 186 U/L (15-37) Alanine Aminotransferase (ALT/SGPT) 49 U/L (12-78) 37 U/L (12-78) 90 U/L (12-78) Alkaline Phosphatase 60 U/L (46-116) 45 U/L (46-116) 52 U/L (46-116) Total Protein 7.4 G/DL (6.4-8.2) 6.2 G/DL (6.4-8.2) 6.5 G/DL (6.4-8.2) Albumin 3.0 G/DL (3.4-5.0) 2.7 G/DL (3.4-5.0) 2.9 G/DL (3.4-5.0) Globulin 4.4 g/dL 3.5 g/dL 3.6 g/dL Albumin/Globulin Ratio 0.7 (1.0-2.7) 0.8 (1.0-2.7) 0.8 (1.0-2.7) Lipase 216 U/L (73-393) 161 U/L (73-393) Serum Alcohol < 3 mg/dL Macrocytosis 1+ 1+ Anion Gap 6 mmol/L (5-15) 9 mmol/L (5-15) Amylase Level 104 U/L (25-115) Hypochromasia 2+ Anisocytosis 1+ Spherocytes 2+ Phosphorus Level 2.9 MG/DL (2.5-4.9) Magnesium Level 1.2 MG/DL (1.8-2.4) Last Vital Signs Date Time Temp Pulse Resp B/P (MAP) Pulse Ox O2 Delivery O2 Flow Rate FiO2 02/05/19 19:54 97.7 109 18 110/70 (83) 98 Status: improved Disposition: ADMITTED INPATIENT Condition: Serious Scripts Pantoprazole* (PANTOPRAZOLE*) 40 Mg Tablet.dr 40 MG ORAL EVERY 12 HOURS for 30 Days, TAB Prov: Stephen Bueno MD 02/07/19 Sucralfate* (CARAFATE*) 1 Gm Tablet 1 GM ORAL FOUR TIMES A DAY for 30 Days, TAB Prov: Stephen Bueno MD 02/07/19 Nate Geronimo MD February 05, 2019 20:28
--- NOTE | 2019-02-05 20:30 | NUR ---
ED Nurse Note: Friend, Alissa, is at bedside
[2019-02-05 20:53] LABS: ALANINE AMINOTRANSFERASE 49 U/L (12-78); ALBUMIN/GLOBULIN RATIO 0.7 (1.0-2.7); ALKALINE PHOSPHATASE 60 U/L (46-116); ASPARTATE AMINO TRANSFERASE 83 U/L (15-37); BILIRUBIN,TOTAL 1.4 MG/DL (0.2-1.0); BLOOD UREA NITROGEN 39 mg/dL (7-18); CALCIUM 9.2 MG/DL (8.5-10.1); CARBON DIOXIDE 25 MMOL/L (21-32); CREATININE 1.4 MG/DL (0.55-1.30)
[2019-02-05 20:58] LABS: BILIRUBIN,DIRECT 0.4 MG/DL (0.0-0.3)
--- NOTE | 2019-02-05 21:00 | NUR ---
ED Nurse Note: attempted telephone report endorsement, was unable to complete at this time. Per tele CRN, call back in 15 min
[2019-02-05 21:05] LABS: POTASSIUM 3.8 MMOL/L (3.5-5.1); SODIUM 138 MMOL/L (136-145)
[2019-02-05 21:06] LABS: CHLORIDE 98 MMOL/L (98-107)
[2019-02-05 21:14] LABS: INR 1.1 (0.9-1.1)
[2019-02-05] MEDS ORDERED: Miralax 17gm pkt ORAL PRN (21:15)
[2019-02-05] MEDS ORDERED: Phytonadione 10 MG in D5W 55 ML IVPB ONE (21:15)
[2019-02-05] MEDS ORDERED: Nitroglycerin Subl 0.4mg tab SL PRN (21:15)
[2019-02-05] MEDS ORDERED: Morphine Sulfate 2mg/ml Inj(IV/IM USE ONLY) IVP PRN (21:15)
[2019-02-05 21:30] VITALS: BP 96/69
--- NOTE | 2019-02-05 21:30 | NUR ---
ED Nurse Note: pt was brought to tele on scholastic aptitude test grader with sherman rn and james emt. pt shows no acute distress, denies pain at the moment, pt vss, skin intact except for left arm healed scratches of unknown origin present prior to arrival, pt is aox4, on room air.
--- NOTE | 2019-02-05 21:30 | NUR ---
NURSE NOTES: Received patient from ER from Beatrice ALMANZA. Patient ambulated from gurney to bed with assistance. Oriented patient to the unit. Bed locked, in low position, bed alarm on, call light within reach, girlfriend at bedside. Patient on room air, no s/s respiratory distress. Patient states "I feel better." No c/o pain, no c/o n/v. Patient has scars of old cuts on left forearm. Patient denies any SI/HI. Alert and oriented x 4, vital signs stable, placed on color television console monitor, sinus rhythm.
--- NOTE | 2019-02-05 22:30 | NUR ---
NURSE NOTES: Informed patient that he is NPO except ice chips, patient verbalized understanding.
[2019-02-05] MEDS: D5NS 1,000 ML IV SCH (22:52)
[2019-02-06] VITALS: BP 131/70
[2019-02-06 04:12] VITALS: BP 131/67
[2019-02-06] MEDS: D5NS 1,000 ML IV SCH ×3 (07:02→12:07)
--- NOTE | 2019-02-06 07:48 | NUR ---
HAND-OFF: Report given to Kacey ALMANZA. Patient in stable condition, plan of care endorsed.
--- NOTE | 2019-02-06 07:49 | NUR ---
NURSE NOTES: Received report from ARCHIE Hernandez. Patient resting in bed, A/O x4. Respiration even and non labored on room air. No SOB noted. IV patent and intact, running at RX dose. Side rails up x2. Safety precaution observed. Bed in lowest position and break engaged. Bed side table and call light within reach. Will continue plan of care.
[2019-02-06 08:00] VITALS: BP 110/71
[2019-02-06 08:05] LABS: HEMATOCRIT 22.1 % (42.0-52.0); HEMOGLOBIN 7.8 G/DL (14.2-18.0); MEAN CORPUSCULAR VOLUME 107 FL (80-99); PLATELET COUNT 56 K/UL (150-450); RED BLOOD COUNT 2.06 M/UL (4.70-6.10); RED CELL DISTRIBUTION WIDTH 12.6 % (11.6-14.8); WHITE BLOOD COUNT 6.8 K/UL (4.8-10.8)
[2019-02-06 08:16] LABS: INR 1.1 (0.9-1.1)
[2019-02-06 08:53] LABS: ALANINE AMINOTRANSFERASE 37 U/L (12-78); ALBUMIN 2.7 G/DL (3.4-5.0); ALBUMIN/GLOBULIN RATIO 0.8 (1.0-2.7); ALKALINE PHOSPHATASE 45 U/L (46-116); AMYLASE 104 U/L (25-115); ANION GAP 6 mmol/L (5-15); ASPARTATE AMINO TRANSFERASE 61 U/L (15-37); BILIRUBIN,TOTAL 1.1 MG/DL (0.2-1.0); BLOOD UREA NITROGEN 37 mg/dL (7-18); CALCIUM 8.3 MG/DL (8.5-10.1); CARBON DIOXIDE 30 MMOL/L (21-32); CHLORIDE 106 MMOL/L (98-107); CREATININE 1.1 MG/DL (0.55-1.30); POTASSIUM 3.5 MMOL/L (3.5-5.1); SODIUM 141 MMOL/L (136-145)
[2019-02-06 08:57] LABS: BILIRUBIN,DIRECT 0.4 MG/DL (0.0-0.3)
[2019-02-06] MEDS: BusPIRone 5mg Tab ORAL SCH ×3 (09:15→18:27)
[2019-02-06] MEDS: Atenolol 25mg tab ORAL SCH (09:15)
--- NOTE | 2019-02-06 10:18 | GI Initial Consult Note ---
History of Present Illness General Date patient seen: February 06, 2019 Time patient seen: 10:13 Reason for Hospitalization: Gastrointestinal Bleed Referring physician: JESSICA SY Reason for Consultation: UGIB Present Illness HPI 54-year-old male presents ED for evaluation. Brought in by EMS for vomiting. Has had multiple episodes of vomiting over the last few days. Notes streaks of blood in his vomit today. denies abdominal pain. Denies any blood in stool. States he does drink alcohol occasionally. States he feels very anxious. History of anxiety. Denies drug use. No other aggravating relieving factors. Denies any other associated symptoms GI consulted for reported upper GI bleed. Patient seen, awake alert and oriented x4, very anxious. The patient reported to have multiple episodes of vomiting over the past few days which he noted blood in his emesis. The patient denied any history of similar events. In addition the patient did note that his stools were very dark. The patient denies any abdominal pain at this time, has current complaint of nausea without vomiting. The patient has no history of endoscopic or colonoscopy. Patient presents today with hemoglobin 7.4. Home Meds Active Scripts Hydrocortisone 2% Cream (ANTI-ITCH 2% CREAM) Y Cr, 1 APPLIC TP BID for 14 Days, #30 GM Prov:Isabela Lemus MD 08/21/18 Trimethoprim/Sulfamethoxazole 160/800* (BACTRIM DS TABLET*) 1 Each Tablet, 1 TAB ORAL Q12H for 10 Days, #20 TAB 0 Refills Prov:Isabela Lemus MD 08/21/18 Bacitracin (Bacitracin) 28.4 Gm Oint...g., 1 APPLIC TOPIC THREE TIMES A DAY, # 28.4 GM Prov:Nate Geronimo MD 08/09/18 Clindamycin Hcl (CLINDAMYCIN HCL) 300 Mg Capsule, 300 MG ORAL THREE TIMES A DAY , #21 CAP Prov:Nate Geronimo MD 08/09/18 Cephalexin* (KEFLEX*) 500 Mg Capsule, 500 MG ORAL TID, #21 CAP Prov:Brendan Smith MD 04/18/18 Buspirone Hcl* (BUSPAR*) 10 Mg Tablet, 10 MG ORAL THREE TIMES A DAY, #30 TAB 0 Refills Prov:Brendan Smith MD 05/26/14 Reported Medications Atenolol* (TENORMIN*) 25 Mg Tablet, 25 MG ORAL DAILY, TAB 11/09/18 No Known Medications* (NKM - No Known Medications*) ., 0 ., 0 Refills 08/09/18 Med list reviewed/reconciled: Yes Allergies: Coded Allergies: No Known Allergies (Unverified , 06/26/12) Patient History History Provided By: Patient, Medical Record PMH Narrative Past Medical History: none, HTN, psych hx Past Surgical History: none Pertinent Family History: none Social History: Denies: smoking, alcohol use, drug use Immunizations: UTD Reviewed Nursing Documentation: PMH: Agreed; PSxH: Agreed Nursing Documentation-PMH Past Medical History: No History, Except For Hx Cardiac Problems: Yes Hx Hypertension: Yes Hx Neurological Problems: Yes - ANXIETY, bipolar Social History: Reports: smoking - Tobacco user, alcohol use - Occasional use Review of Systems All Other Systems: negative except mentioned in HPI Physical Exam Vital Signs Date Time Temp Pulse Resp B/P (MAP) Pulse Ox O2 Delivery O2 Flow Rate FiO2 02/05/19 19:54 97.7 109 18 110/70 (83) 98 02/05/19 20:00 Room Air Sp02 EP Interpretation: reviewed, normal Labs Laboratory Tests Test 02/05/19 20:02 02/06/19 07:35 White Blood Count 14.4 K/UL (4.8-10.8) H 6.8 K/UL (4.8-10.8) # Red Blood Count 2.66 M/UL (4.70-6.10) L 2.06 M/UL (4.70-6.10) L Hemoglobin 10.1 G/DL (14.2-18.0) L 7.8 G/DL (14.2-18.0) L Hematocrit 27.8 % (42.0-52.0) L 22.1 % (42.0-52.0) L Mean Corpuscular Volume 105 FL (80-99) H 107 FL (80-99) H Mean Corpuscular Hemoglobin 37.9 PG (27.0-31.0) H 37.8 PG (27.0-31.0) H Mean Corpuscular Hemoglobin Concent 36.2 G/DL (32.0-36.0) H 35.2 G/DL (32.0-36.0) Red Cell Distribution Width 12.1 % (11.6-14.8) 12.6 % (11.6-14.8) Platelet Count 82 K/UL (150-450) L 56 K/UL (150-450) L Mean Platelet Volume 5.5 FL (6.5-10.1) L 7.8 FL (6.5-10.1) Neutrophils (%) (Auto) % (45.0-75.0) % (45.0-75.0) Lymphocytes (%) (Auto) % (20.0-45.0) % (20.0-45.0) Monocytes (%) (Auto) % (1.0-10.0) % (1.0-10.0) Eosinophils (%) (Auto) % (0.0-3.0) % (0.0-3.0) Basophils (%) (Auto) % (0.0-2.0) % (0.0-2.0) Differential Total Cells Counted 100 Neutrophils % (Manual) 67 % (45-75) Pending Lymphocytes % (Manual) 25 % (20-45) Pending Monocytes % (Manual) 8 % (1-10) Eosinophils % (Manual) 0 % (0-3) Basophils % (Manual) 0 % (0-2) Band Neutrophils 0 % (0-8) Platelet Estimate Decreased L Pending Platelet Morphology Normal Pending Red Blood Cell Morphology Normal Prothrombin Time 12.0 SEC (9.30-11.50) H 12.0 SEC (9.30-11.50) H Prothromb Time International Ratio 1.1 (0.9-1.1) 1.1 (0.9-1.1) Activated Partial Thromboplast Time 23 SEC (23-33) 22 SEC (23-33) L Sodium Level 138 MMOL/L (136-145) 141 MMOL/L (136-145) Potassium Level 3.8 MMOL/L (3.5-5.1) 3.5 MMOL/L (3.5-5.1) Chloride Level 98 MMOL/L (98-107) 106 MMOL/L (98-107) Carbon Dioxide Level 25 MMOL/L (21-32) 30 MMOL/L (21-32) Blood Urea Nitrogen 39 mg/dL (7-18) H 37 mg/dL (7-18) H Creatinine 1.4 MG/DL (0.55-1.30) H 1.1 MG/DL (0.55-1.30) Estimat Glomerular Filtration Rate 52.4 mL/min (>60) > 60 mL/min (>60) Glucose Level 217 MG/DL (74-106) H 116 MG/DL (74-106) #H Calcium Level 9.2 MG/DL (8.5-10.1) 8.3 MG/DL (8.5-10.1) L Total Bilirubin 1.4 MG/DL (0.2-1.0) H 1.1 MG/DL (0.2-1.0) H Direct Bilirubin 0.4 MG/DL (0.0-0.3) H 0.4 MG/DL (0.0-0.3) H Aspartate Amino Transf (AST/SGOT) 83 U/L (15-37) H 61 U/L (15-37) H Alanine Aminotransferase (ALT/SGPT) 49 U/L (12-78) 37 U/L (12-78) Alkaline Phosphatase 60 U/L (46-116) 45 U/L (46-116) L Total Protein 7.4 G/DL (6.4-8.2) 6.2 G/DL (6.4-8.2) L Albumin 3.0 G/DL (3.4-5.0) L 2.7 G/DL (3.4-5.0) L Globulin 4.4 g/dL 3.5 g/dL Albumin/Globulin Ratio 0.7 (1.0-2.7) L 0.8 (1.0-2.7) L Lipase 216 U/L (73-393) 161 U/L (73-393) Serum Alcohol < 3 mg/dL Anion Gap 6 mmol/L (5-15) Amylase Level 104 U/L (25-115) General Appearance: well appearing, no apparent distress, alert Head: normocephalic EENT: PERRL/EOMI, normal ENT inspection Neck: supple Respiratory: normal breath sounds, no respiratory distress Cardiovascular: normal rate Gastrointestinal: normal inspection, non tender, soft, normal bowel sounds, non -distended Rectal: deferred Genitourinary: deferred Musculoskeletal: normal inspection, back normal Neurologic: normal inspection, alert, oriented x3, responsive Psychiatric: normal inspection, judgement/insight normal, memory normal Skin: normal inspection, normal color, no rash, warm/dry, palpation normal, well hydrated Lymphatic: normal inspection, no adenopathy Current Medications Current Medications Medications (Trade) Dose Ordered Sig/Benny Route PRN Reason Start Time Stop Time Status Last Admin Dose Admin Acetaminophen (Tylenol) 650 mg Q4H PRN ORAL fever 02/05/19 21:15 03/07/19 21:14 Atenolol (Tenormin) 25 mg DAILY ORAL 02/06/19 09:00 03/08/19 08:59 02/06/19 09:15 Buspirone HCl (Buspar) 10 mg THREE TIMES A DAY ORAL 02/06/19 09:00 03/08/19 08:59 02/06/19 09:15 Dextrose (Dextrose 50%) 25 ml Q30M PRN IV Hypoglycemia 02/05/19 21:15 03/07/19 21:14 Dextrose (Dextrose 50%) 50 ml Q30M PRN IV Hypoglycemia 02/05/19 21:15 03/07/19 21:14 Dextrose/Sodium Chloride 1,000 ml @ 100 mls/hr Q10H IV 02/05/19 21:02 03/07/19 21:01 02/06/19 09:16 Diphenhydramine HCl (Benadryl) 25 mg Q6H PRN ORAL Itching/Pruritis 02/05/19 21:15 03/07/19 21:14 Morphine Sulfate (Morphine Sulfate) 2 mg Q4H PRN IVP severe Pain (Pain Scale 7-10) 02/05/19 21:15 02/12/19 21:14 Nitroglycerin (Ntg) 0.4 mg Q5M X 3 DOSES PRN SL Prn Chest Pain 02/05/19 21:15 03/07/19 21:14 Ondansetron HCl (Zofran) 4 mg Q6H PRN IVP Nausea & Vomiting 02/05/19 21:15 03/07/19 21:14 Polyethylene Glycol (Miralax) 17 gm HSPRN PRN ORAL Constipation 02/05/19 21:15 03/07/19 21:14 Temazepam (Restoril) 15 mg HSPRN PRN ORAL Insomnia 02/05/19 21:15 02/12/19 21:14 02/06/19 02:01 GI: Plan Problems: (1) Gastrointestinal hemorrhage (2) Upper GI bleed (3) Alcohol abuse (4) Bipolar disorder Plan EGD scheduled for today. Maintain the patient n.p.o. plus IV fluids PPI PRN transfusions We will follow with additional recommendations postprocedure Discussed with Dr. Thomson. Thank you for this patient referral, we will follow. The patient was seen and examined at bedside and all new and available data was reviewed in the patients chart. I agree with the above findings, impression and plan. (Patient seen earlier today. Signature stamp does not reflect patient encounter time.). - MD Sarah StevensonArizona Spine And Joint HospitalRivas ZAMBRANO February 06, 2019 10:18
--- NOTE | 2019-02-06 11:34 | Consultation ---
History of Present Illness General Date patient seen: February 06, 2019 Chief Complaint: Gastrointestinal Bleed Referring physician: JESSICA SY Reason for Consultation: inpatient management Present Illness HPI 54-year-old male with hx of anxiety, bipolar, ETOH abuse presented to ED for evaluation of vomiting over the last few days. Notes streaks of blood in his vomit today. denies abdominal pain. Denies any blood in stool. States he feels very anxious. Denies any other associated symptoms. He is admitted to telemetry for further work up. Allergies: Coded Allergies: No Known Allergies (Unverified , 06/26/12) Medication History Scheduled Atenolol* (Tenormin*), 25 MG ORAL DAILY, (Reported) Bacitracin (Bacitracin), 1 APPLIC TOPIC THREE TIMES A DAY Buspirone Hcl* (Buspar*), 10 MG ORAL THREE TIMES A DAY Cephalexin* (Keflex*), 500 MG ORAL TID Clindamycin Hcl (Clindamycin Hcl), 300 MG ORAL THREE TIMES A DAY Hydrocortisone 2% Cream (Anti-Itch 2% Cream), 1 APPLIC TP BID No Known Medications* (NKM - No Known Medications*), 0 ., (Reported) Trimethoprim/Sulfamethoxazole 160/800* (Bactrim Ds Tablet*), 1 TAB ORAL Q12H Patient History Healthcare decision maker Resuscitation status Full Code Advanced Directive on File Past Medical/Surgical History Past Medical/Surgical History: (1) Bipolar disorder (2) Hypertension (3) anxiety Review of Systems All Other Systems: negative except mentioned in HPI Physical Exam General Appearance: WD/WN, no apparent distress Lines, tubes and drains: peripheral HEENT: normocephalic, atraumatic, anicteric Neck: non-tender, normal alignment Respiratory/Chest: chest wall non-tender, lungs clear Breasts: no masses Cardiovascular/Chest: normal peripheral pulses, normal rate Genitourinary/Rectal: normal genital exam Extremities: normal range of motion Skin Exam: normal pigmentation Last 24 Hour Vital Signs Date Time Temp Pulse Resp B/P (MAP) Pulse Ox O2 Delivery O2 Flow Rate FiO2 02/06/19 09:15 92 110/71 02/06/19 08:00 98.5 92 18 110/71 (84) 98 02/06/19 04:12 98.0 89 19 131/67 (88) 98 02/06/19 03:42 98 02/06/19 00:00 98.0 91 19 131/70 (90) 98 02/05/19 23:23 92 02/05/19 21:37 97.8 94 16 96/70 98 Room Air 02/05/19 21:30 98.1 91 17 96/69 (78) 97 02/05/19 21:30 Room Air 02/05/19 20:00 97.7 96 15 95/69 100 Room Air 02/05/19 20:00 96 15 02/05/19 19:54 97.7 109 18 110/70 (83) 98 Intake and Output 02/05/19 02/06/19 19:00 07:00 Intake Total 800 ml Output Total 0 ml Balance 800 ml Intake IV Total 800 ml Output Urine Total 0 ml # Voids 1 Laboratory Tests Test 02/05/19 20:02 02/06/19 07:35 White Blood Count 14.4 K/UL (4.8-10.8) H 6.8 K/UL (4.8-10.8) # Red Blood Count 2.66 M/UL (4.70-6.10) L 2.06 M/UL (4.70-6.10) L Hemoglobin 10.1 G/DL (14.2-18.0) L 7.8 G/DL (14.2-18.0) L Hematocrit 27.8 % (42.0-52.0) L 22.1 % (42.0-52.0) L Mean Corpuscular Volume 105 FL (80-99) H 107 FL (80-99) H Mean Corpuscular Hemoglobin 37.9 PG (27.0-31.0) H 37.8 PG (27.0-31.0) H Mean Corpuscular Hemoglobin Concent 36.2 G/DL (32.0-36.0) H 35.2 G/DL (32.0-36.0) Red Cell Distribution Width 12.1 % (11.6-14.8) 12.6 % (11.6-14.8) Platelet Count 82 K/UL (150-450) L 56 K/UL (150-450) L Mean Platelet Volume 5.5 FL (6.5-10.1) L 7.8 FL (6.5-10.1) Neutrophils (%) (Auto) % (45.0-75.0) % (45.0-75.0) Lymphocytes (%) (Auto) % (20.0-45.0) % (20.0-45.0) Monocytes (%) (Auto) % (1.0-10.0) % (1.0-10.0) Eosinophils (%) (Auto) % (0.0-3.0) % (0.0-3.0) Basophils (%) (Auto) % (0.0-2.0) % (0.0-2.0) Differential Total Cells Counted 100 Neutrophils % (Manual) 67 % (45-75) Pending Lymphocytes % (Manual) 25 % (20-45) Pending Monocytes % (Manual) 8 % (1-10) Eosinophils % (Manual) 0 % (0-3) Basophils % (Manual) 0 % (0-2) Band Neutrophils 0 % (0-8) Platelet Estimate Decreased L Pending Platelet Morphology Normal Pending Red Blood Cell Morphology Normal Prothrombin Time 12.0 SEC (9.30-11.50) H 12.0 SEC (9.30-11.50) H Prothromb Time International Ratio 1.1 (0.9-1.1) 1.1 (0.9-1.1) Activated Partial Thromboplast Time 23 SEC (23-33) 22 SEC (23-33) L Sodium Level 138 MMOL/L (136-145) 141 MMOL/L (136-145) Potassium Level 3.8 MMOL/L (3.5-5.1) 3.5 MMOL/L (3.5-5.1) Chloride Level 98 MMOL/L (98-107) 106 MMOL/L (98-107) Carbon Dioxide Level 25 MMOL/L (21-32) 30 MMOL/L (21-32) Blood Urea Nitrogen 39 mg/dL (7-18) H 37 mg/dL (7-18) H Creatinine 1.4 MG/DL (0.55-1.30) H 1.1 MG/DL (0.55-1.30) Estimat Glomerular Filtration Rate 52.4 mL/min (>60) > 60 mL/min (>60) Glucose Level 217 MG/DL (74-106) H 116 MG/DL (74-106) #H Calcium Level 9.2 MG/DL (8.5-10.1) 8.3 MG/DL (8.5-10.1) L Total Bilirubin 1.4 MG/DL (0.2-1.0) H 1.1 MG/DL (0.2-1.0) H Direct Bilirubin 0.4 MG/DL (0.0-0.3) H 0.4 MG/DL (0.0-0.3) H Aspartate Amino Transf (AST/SGOT) 83 U/L (15-37) H 61 U/L (15-37) H Alanine Aminotransferase (ALT/SGPT) 49 U/L (12-78) 37 U/L (12-78) Alkaline Phosphatase 60 U/L (46-116) 45 U/L (46-116) L Total Protein 7.4 G/DL (6.4-8.2) 6.2 G/DL (6.4-8.2) L Albumin 3.0 G/DL (3.4-5.0) L 2.7 G/DL (3.4-5.0) L Globulin 4.4 g/dL 3.5 g/dL Albumin/Globulin Ratio 0.7 (1.0-2.7) L 0.8 (1.0-2.7) L Lipase 216 U/L (73-393) 161 U/L (73-393) Serum Alcohol < 3 mg/dL Anion Gap 6 mmol/L (5-15) Amylase Level 104 U/L (25-115) Height (Feet): 5 Height (Inches): 7.00 Weight (Pounds): 150 Medications Current Medications Medications (Trade) Dose Ordered Sig/Benny Route PRN Reason Start Time Stop Time Status Last Admin Dose Admin Acetaminophen (Tylenol) 650 mg Q4H PRN ORAL fever 02/05/19 21:15 03/07/19 21:14 Atenolol (Tenormin) 25 mg DAILY ORAL 02/06/19 09:00 03/08/19 08:59 02/06/19 09:15 Buspirone HCl (Buspar) 10 mg THREE TIMES A DAY ORAL 02/06/19 09:00 03/08/19 08:59 02/06/19 09:15 Dextrose (Dextrose 50%) 25 ml Q30M PRN IV Hypoglycemia 02/05/19 21:15 03/07/19 21:14 Dextrose (Dextrose 50%) 50 ml Q30M PRN IV Hypoglycemia 02/05/19 21:15 03/07/19 21:14 Dextrose/Sodium Chloride 1,000 ml @ 100 mls/hr Q10H IV 02/05/19 21:02 03/07/19 21:01 02/06/19 09:16 Diphenhydramine HCl (Benadryl) 25 mg Q6H PRN ORAL Itching/Pruritis 02/05/19 21:15 03/07/19 21:14 Morphine Sulfate (Morphine Sulfate) 2 mg Q4H PRN IVP severe Pain (Pain Scale 7-10) 02/05/19 21:15 02/12/19 21:14 Nitroglycerin (Ntg) 0.4 mg Q5M X 3 DOSES PRN SL Prn Chest Pain 02/05/19 21:15 03/07/19 21:14 Ondansetron HCl (Zofran) 4 mg Q6H PRN IVP Nausea & Vomiting 02/05/19 21:15 03/07/19 21:14 Polyethylene Glycol (Miralax) 17 gm HSPRN PRN ORAL Constipation 02/05/19 21:15 03/07/19 21:14 Temazepam (Restoril) 15 mg HSPRN PRN ORAL Insomnia 02/05/19 21:15 02/12/19 21:14 02/06/19 02:01 Assessment/Plan Problem List: (1) Upper GI bleed ICD Codes: K92.2 - Gastrointestinal hemorrhage, unspecified SNOMED: 78042630 (2) Bipolar disorder (3) Gastrointestinal hemorrhage ICD Codes: K92.2 - Gastrointestinal hemorrhage, unspecified SNOMED: 06897583 (4) Hypertension ICD Codes: I10 - Essential (primary) hypertension SNOMED: 72208992 (5) Alcohol abuse (6) anxiety Assessment/Plan: NPO iv fluids GI evaluation prn PrBC banana bag with folic acid and thiamine check h/h in am Stephen Wells MD February 06, 2019 11:34
[2019-02-06 12:00] VITALS: BP 110/76
--- NOTE | 2019-02-06 13:59 | NUR ---
CASE MANAGEMENT:REVIEW 54 YR OLD FEMALE BIBA FROM HOME CC; VOMITING BLOOD SI: UGIB 97.7 109 18 95/69 100% ON RA WBC+14.4 H/H-10.1/27.8 PLT-82 IS: IV ZOFRAN IV PEPCID 1L NS BOLUS IV ATIVAN : TO MED/SURG 3 [facility] 02/06/19 SI: H/H-7.8/22.1 IS: TRANSFUSE 1 UNIT PRBC'S : TELEMETRY
[2019-02-06 16:00] VITALS: BP 102/68
--- NOTE | 2019-02-06 16:01 | Cardiology Report ---
APPROVED REPORT EKG Measurement Heart [id number] MD [id number] Normal sinus rhythm Low voltage QRS Borderline ECG
--- NOTE | 2019-02-06 17:33 | History & Physical ---
History and Physical History & Physicial Dictated for Int Med-Dr Mccormack no. [id number]. Kelvin Valentine MD February 06, 2019 17:33
--- NOTE | 2019-02-06 19:42 | NUR ---
HAND-OFF: Report given to ARCHIE La.
--- NOTE | 2019-02-06 19:43 | NUR ---
NURSE NOTES: Got report from Rosy ALMANZA. Pt in stable condition. Denies any pain. No s/s of distress or discomfort noted. Pt resting in bed comfortably. Bed in low and locked position, call light within reach, bedside table within reach. Continue to monitor.
[2019-02-06 20:00] VITALS: BP 108/72
[2019-02-07] VITALS (10 sets, daily range): BP systolic 109–127; BP diastolic 69–86
--- NOTE | 2019-02-07 01:15 | History and Physical Report ---
DATE OF ADMISSION: 02/06/2019 CHIEF COMPLAINT: The patient is a 54-year-old white male, who presents with a chief complaint of vomiting blood. HISTORY OF PRESENT ILLNESS: Began on 02/04/2019. The patient began to experience nausea and vomiting. The patient states initially the vomitus was brown-colored. This became bright red overnight Tuesday and to 02/05/2019. The patient states he vomited approximately 2.5 liters of blood. The patient presented to [place] emergency room. The patient was admitted for upper gastrointestinal hemorrhage. REVIEW OF SYSTEMS: CONSTITUTIONAL: The patient denies weight loss or weight gain. The patient denies fevers or chills. HEENT: The patient denies ear or throat pain. The patient denies headache. CARDIOVASCULAR: The patient denies palpitations or chest pain. CHEST: The patient denies wheeze or shortness of breath. ABDOMINAL: The patient complains of hematemesis as above. The patient denies constipation. The patient denies diarrhea. The patient complains of nausea with vomiting of blood. NEUROMUSCULAR: The patient denies seizures or generalized weakness. GENITOURINARY: The patient denies dysuria or increased frequency of urination. PAST MEDICAL HISTORY: Significant for, 1. Hypertension. 2. Major depression. PAST SURGICAL HISTORY: The patient denies. CURRENT MEDICATIONS: 1. Atenolol 25 mg one tablet p.o. daily. 2. BuSpar 10 mg p.o. 3 times daily. ALLERGIES: No known drug allergies. SOCIAL HISTORY: The patient is . The patient admits to tobacco use of 1/3 pack per day. The patient admits to alcohol use once weekly. The patient denies drug abuse. PHYSICAL EXAMINATION: VITAL SIGNS: Temperature 97.7, respirations 18, pulse 109, and blood pressure 110/70. GENERAL: The patient is a well-developed and well-nourished white male, in no apparent distress. HEENT: Eyes, pupils are equal and responsive to light and accommodation. Extraocular movements are intact. NECK: Supple without lymphadenopathy. CHEST: Lungs are clear to auscultation bilaterally without wheezes or rales. CARDIOVASCULAR: Regular rhythm and rate. S1, S2 are normal without murmurs, rubs, or gallops. ABDOMEN: Soft, nontender, and nondistended. Positive bowel sounds. No evidence of hepatosplenomegaly. Currently, no rebound or guarding noted. EXTREMITIES: Negative for clubbing, cyanosis, or edema. RECTAL/GENITAL: Refused. NEUROLOGIC: Cranial nerves II through XII are grossly intact without focal deficits. Motor strength is 5/5 bilaterally. Deep tendon reflexes are 2+ plantar. LABORATORY STUDIES: WBC 14.4, hemoglobin 10.1, hematocrit 27.8, and platelets 82,000. Sodium 138, potassium 3.8, chloride 98, CO2 25, BUN 39, creatinine 1.4, and glucose 217. Total bilirubin elevated at 1.4 and direct bilirubin elevated at 0.4. AST elevated at 83. ASSESSMENT: This is a 54-year-old white male. 1. Gastrointestinal hemorrhage. 2. Anemia, probable blood loss. 3. Hypertension. 4. Major depression. TREATMENT: 1. Gastrointestinal hemorrhage/elevated liver function tests. A Gastroenterology consultation has been obtained with Dr. Wally Thomson. We will follow recommendations of Gastroenterology. The patient may require an endoscopy during this hospitalization. The patient minimizes alcohol use. The patient may have alcoholic gastritis versus esophageal varices. 2. Hypertension. Continue metoprolol as above. The patient is currently normotensive off medication. 3. Major depression. Continue BuSpar as above. Kelvin Valentine M.D. DR: MARY JOB#: [id number] CC:
[2019-02-07 06:35] LABS: HEMATOCRIT 24.5 % (42.0-52.0); HEMOGLOBIN 8.5 G/DL (14.2-18.0); MEAN CORPUSCULAR VOLUME 102 FL (80-99); PLATELET COUNT 54 K/UL (150-450); RED BLOOD COUNT 2.39 M/UL (4.70-6.10); RED CELL DISTRIBUTION WIDTH 17.2 % (11.6-14.8); WHITE BLOOD COUNT 5.7 K/UL (4.8-10.8)
[2019-02-07 06:36] LABS: PHOSPHORUS 2.9 MG/DL (2.5-4.9)
--- NOTE | 2019-02-07 06:37 | Anethesia Preoperative Eval ---
Anesthesia Pre-op PMH/ROS General Date of Evaluation: February 07, 2019 Time of Evaluation: 06:36 Anesthesiologist: mindy ASA Score: ASA 3 Mallampati Score Class I : Soft palate, uvula, fauces, pillars visible Class II: Soft palate, uvula, fauces visible Class III: Soft palate, base of uvula visible Class IV: Only hard plate visible Mallampati Classification: Class II Surgeon: helena Diagnosis: ugib Surgical Procedure: egd Anesthesia History: none Social History: current smoker Family History: no anesthesia problems Allergies: Coded Allergies: No Known Allergies (Unverified , 06/26/12) Medications: see eMAR Patient NPO?: Yes Past Medical History Cardiovascular: Reports: HTN Neurologic/Psychiatric: Reports: depression/anxiety Anesthesia Pre-op Phys. Exam Physician Exam Last Vital Signs Date Time Temp Pulse Resp B/P (MAP) Pulse Ox O2 Delivery O2 Flow Rate FiO2 02/07/19 04:20 99.1 94 20 118/78 (91) 96 02/06/19 21:00 Room Air Constitutional: NAD Neurologic: CN 2-12 intact Cardiovascular: RRR Respiratory: CTA Gastrointestinal: S/NT/ND Airway Exam Mallampati Score: Class II MO: limited Neck: flexible TMD: 2fb ROM: limited Anesthesia Pre-op A/P Labs Labs Test 02/05/19 20:02 02/06/19 07:35 02/07/19 05:35 White Blood Count 14.4 K/UL (4.8-10.8) 6.8 K/UL (4.8-10.8) 5.7 K/UL (4.8-10.8) Red Blood Count 2.66 M/UL (4.70-6.10) 2.06 M/UL (4.70-6.10) 2.39 M/UL (4.70-6.10) Hemoglobin 10.1 G/DL (14.2-18.0) 7.8 G/DL (14.2-18.0) 8.5 G/DL (14.2-18.0) Hematocrit 27.8 % (42.0-52.0) 22.1 % (42.0-52.0) 24.5 % (42.0-52.0) Mean Corpuscular Volume 105 FL (80-99) 107 FL (80-99) 102 FL (80-99) Mean Corpuscular Hemoglobin 37.9 PG (27.0-31.0) 37.8 PG (27.0-31.0) 35.5 PG (27.0-31.0) Mean Corpuscular Hemoglobin Concent 36.2 G/DL (32.0-36.0) 35.2 G/DL (32.0-36.0) 34.8 G/DL (32.0-36.0) Red Cell Distribution Width 12.1 % (11.6-14.8) 12.6 % (11.6-14.8) 17.2 % (11.6-14.8) Platelet Count 82 K/UL (150-450) 56 K/UL (150-450) 54 K/UL (150-450) Mean Platelet Volume 5.5 FL (6.5-10.1) 7.8 FL (6.5-10.1) 7.0 FL (6.5-10.1) Neutrophils (%) (Auto) % (45.0-75.0) % (45.0-75.0) % (45.0-75.0) Lymphocytes (%) (Auto) % (20.0-45.0) % (20.0-45.0) % (20.0-45.0) Monocytes (%) (Auto) % (1.0-10.0) % (1.0-10.0) % (1.0-10.0) Eosinophils (%) (Auto) % (0.0-3.0) % (0.0-3.0) % (0.0-3.0) Basophils (%) (Auto) % (0.0-2.0) % (0.0-2.0) % (0.0-2.0) Differential Total Cells Counted 100 100 Neutrophils % (Manual) 67 % (45-75) 58 % (45-75) Lymphocytes % (Manual) 25 % (20-45) 37 % (20-45) Monocytes % (Manual) 8 % (1-10) 5 % (1-10) Eosinophils % (Manual) 0 % (0-3) 0 % (0-3) Basophils % (Manual) 0 % (0-2) 0 % (0-2) Band Neutrophils 0 % (0-8) 0 % (0-8) Platelet Estimate Decreased Decreased Platelet Morphology Normal Normal Red Blood Cell Morphology Normal Prothrombin Time 12.0 SEC (9.30-11.50) 12.0 SEC (9.30-11.50) 12.6 SEC (9.30-11.50) Prothromb Time International Ratio 1.1 (0.9-1.1) 1.1 (0.9-1.1) 1.2 (0.9-1.1) Activated Partial Thromboplast Time 23 SEC (23-33) 22 SEC (23-33) 22 SEC (23-33) Sodium Level 138 MMOL/L (136-145) 141 MMOL/L (136-145) 141 MMOL/L (136-145) Potassium Level 3.8 MMOL/L (3.5-5.1) 3.5 MMOL/L (3.5-5.1) 3.4 MMOL/L (3.5-5.1) Chloride Level 98 MMOL/L (98-107) 106 MMOL/L (98-107) 107 MMOL/L (98-107) Carbon Dioxide Level 25 MMOL/L (21-32) 30 MMOL/L (21-32) 25 MMOL/L (21-32) Blood Urea Nitrogen 39 mg/dL (7-18) 37 mg/dL (7-18) 20 mg/dL (7-18) Creatinine 1.4 MG/DL (0.55-1.30) 1.1 MG/DL (0.55-1.30) 1.0 MG/DL (0.55-1.30) Estimat Glomerular Filtration Rate 52.4 mL/min (>60) > 60 mL/min (>60) > 60 mL/min (>60) Glucose Level 217 MG/DL (74-106) 116 MG/DL (74-106) 96 MG/DL (74-106) Calcium Level 9.2 MG/DL (8.5-10.1) 8.3 MG/DL (8.5-10.1) 8.4 MG/DL (8.5-10.1) Total Bilirubin 1.4 MG/DL (0.2-1.0) 1.1 MG/DL (0.2-1.0) 0.9 MG/DL (0.2-1.0) Direct Bilirubin 0.4 MG/DL (0.0-0.3) 0.4 MG/DL (0.0-0.3) Aspartate Amino Transf (AST/SGOT) 83 U/L (15-37) 61 U/L (15-37) 186 U/L (15-37) Alanine Aminotransferase (ALT/SGPT) 49 U/L (12-78) 37 U/L (12-78) 90 U/L (12-78) Alkaline Phosphatase 60 U/L (46-116) 45 U/L (46-116) 52 U/L (46-116) Total Protein 7.4 G/DL (6.4-8.2) 6.2 G/DL (6.4-8.2) 6.5 G/DL (6.4-8.2) Albumin 3.0 G/DL (3.4-5.0) 2.7 G/DL (3.4-5.0) 2.9 G/DL (3.4-5.0) Globulin 4.4 g/dL 3.5 g/dL 3.6 g/dL Albumin/Globulin Ratio 0.7 (1.0-2.7) 0.8 (1.0-2.7) 0.8 (1.0-2.7) Lipase 216 U/L (73-393) 161 U/L (73-393) Serum Alcohol < 3 mg/dL Macrocytosis 1+ Anion Gap 6 mmol/L (5-15) 9 mmol/L (5-15) Amylase Level 104 U/L (25-115) Phosphorus Level 2.9 MG/DL (2.5-4.9) Magnesium Level 1.2 MG/DL (1.8-2.4) Risk Assessment & Plan Assessment: asa3 Plan: mac Status Change Before Surgery: No Pre-Antibiotics Drug: Beatrice Serra MD February 07, 2019 06:37
[2019-02-07 06:45] LABS: INR 1.2 (0.9-1.1)
[2019-02-07] MEDS ORDERED: fentaNYL 100 mcg/2 mL IV PRN (06:45)
[2019-02-07] MEDS ORDERED: Midazolam 2mg/2ml Inj IVP PRN (06:45)
[2019-02-07] MEDS ORDERED: DiphenhydrAMINE 50mg/ml Inj IVP PRN (06:45)
[2019-02-07] MEDS ORDERED: Atropine Inj 1mg/10ml Syr IV PRN (06:45)
[2019-02-07 06:55] LABS: ALANINE AMINOTRANSFERASE 90 U/L (12-78); ALBUMIN 2.9 G/DL (3.4-5.0); ALBUMIN/GLOBULIN RATIO 0.8 (1.0-2.7); ALKALINE PHOSPHATASE 52 U/L (46-116); ANION GAP 9 mmol/L (5-15); ASPARTATE AMINO TRANSFERASE 186 U/L (15-37); BLOOD UREA NITROGEN 20 mg/dL (7-18); CALCIUM 8.4 MG/DL (8.5-10.1); CARBON DIOXIDE 25 MMOL/L (21-32); CHLORIDE 107 MMOL/L (98-107); POTASSIUM 3.4 MMOL/L (3.5-5.1); SODIUM 141 MMOL/L (136-145)
--- NOTE | 2019-02-07 07:30 | NUR ---
HAND-OFF: Report given to Shila ALMANZA. Endorsed plan of care.
[2019-02-07 07:53] LABS: BILIRUBIN,TOTAL 0.9 MG/DL (0.2-1.0)
[2019-02-07] MEDS: D5NS 1,000 ML IV SCH (08:00)
--- NOTE | 2019-02-07 08:00 | NUR ---
NURSE NOTES: Received report from ARCHIE Rios. Pt in bed, talkative, discussed plan for EGD at 0900 today and picking tech to go to GI lab at 0800, instructed pt to remove all jewelry, assisted pt to bathroom and instructed pt to remove all non-hospital clothing, SL IV, no complaints of pain at this time, no apparent distress noted, bed in lowest position, call light in bed.
--- NOTE | 2019-02-07 08:07 | NUR ---
NURSE NOTES: Notified Maykel in GI lab of electrolyte imbalances as of this mornings labs, Maykel stated she will notify the Anesthesiologist
[2019-02-07] MEDS: Atenolol 25mg tab ORAL SCH ×2 (08:53→12:03)
[2019-02-07] MEDS: BusPIRone 5mg Tab ORAL SCH ×2 (08:53→12:03)
--- NOTE | 2019-02-07 09:18 | Pre-Procedure Note/Attestation ---
Pre-Procedure Note/Attestation Complete Prior to Procedure Planned Procedure: not applicable Procedure Narrative: egd Indications for Procedure Pre-Operative Diagnosis: gib Attestation I attest that I discussed the nature of the procedure; its benefits; risks and complications; and alternatives (and the risks and benefits of such alternatives ), prior to the procedure, with the patient (or the patient's legal advertising sales representative). I attest that, if there was a reasonable possibility of needing a blood transfusion, the patient (or the patient's legal advertising sales representative) was given the [facility] standardized written summary, pursuant to the [place] Blood Safety Act ([place] Health and Safety Code # 1645, as amended). I attest that I re-evaluated the patient just prior to the surgery and that there has been no change in the patient's H&P, except as documented below: Wally Thomson MD February 07, 2019 09:18
--- NOTE | 2019-02-07 09:20 | General Progress Note ---
Assessment/Plan Problem List: (1) Upper GI bleed ICD Codes: K92.2 - Gastrointestinal hemorrhage, unspecified SNOMED: 24242060 (2) Bipolar disorder (3) Hypertension ICD Codes: I10 - Essential (primary) hypertension SNOMED: 63552927 (4) anxiety (5) Alcohol abuse Assessment/Plan: plan EGD for today Subjective ROS Limited/Unobtainable: Yes Allergies: Coded Allergies: No Known Allergies (Unverified , 06/26/12) Objective Last 24 Hour Vital Signs Date Time Temp Pulse Resp B/P (MAP) Pulse Ox O2 Delivery O2 Flow Rate FiO2 02/07/19 04:20 99.1 94 20 118/78 (91) 96 02/07/19 03:45 79 02/07/19 00:00 99.0 75 18 121/78 (92) 97 02/07/19 00:00 70 02/06/19 21:00 Room Air 02/06/19 20:00 99.0 86 18 108/72 (84) 99 02/06/19 20:00 81 02/06/19 16:00 98.5 81 20 102/68 (79) 96 02/06/19 16:00 64 02/06/19 12:00 75 02/06/19 12:00 98.1 90 18 110/76 (87) 97 Intake and Output 02/06/19 02/07/19 19:00 07:00 Intake Total 860 ml Balance 860 ml Intake Oral 240 ml Blood Product 320 ml Other 300 ml # Voids 5 4 # Bowel Movements 1 Laboratory Tests 02/07/19 05:35: White Blood Count 5.7, Red Blood Count 2.39L, Hemoglobin 8.5L, Hematocrit 24.5L , Mean Corpuscular Volume 102H, Mean Corpuscular Hemoglobin 35.5H, Mean Corpuscular Hemoglobin Concent 34.8, Red Cell Distribution Width 17.2H, Platelet Count 54L, Mean Platelet Volume 7.0, Neutrophils (%) (Auto) , Lymphocytes (%) (Auto) , Monocytes (%) (Auto) , Eosinophils (%) (Auto) , Basophils (%) (Auto) , Neutrophils % (Manual) [Pending], Lymphocytes % (Manual) [Pending], Platelet Estimate [Pending], Platelet Morphology [Pending], Prothrombin Time 12.6H, Prothromb Time International Ratio 1.2H, Activated Partial Thromboplast Time 22L, Sodium Level 141, Potassium Level 3.4L, Chloride Level 107, Carbon Dioxide Level 25, Anion Gap 9, Blood Urea Nitrogen 20H, Creatinine 1.0, Estimat Glomerular Filtration Rate > 60, Glucose Level 96, Calcium Level 8.4L, Phosphorus Level 2.9, Magnesium Level 1.2L, Total Bilirubin 0.9, Aspartate Amino Transf (AST/SGOT) 186H, Alanine Aminotransferase (ALT/SGPT ) 90H, Alkaline Phosphatase 52, Total Protein 6.5, Albumin 2.9L, Globulin 3.6, Albumin/Globulin Ratio 0.8L Height (Feet): 5 Height (Inches): 6.00 Weight (Pounds): 165 General Appearance: no apparent distress EENT: normal ENT inspection Neck: supple Cardiovascular: normal rate Respiratory/Chest: lungs clear Abdomen: normal bowel sounds, non tender, soft Extremities: non-tender Wally Thomson MD February 07, 2019 09:19
[2019-02-07] MEDS ORDERED: Lidocaine 1% MPF 10mg/ml 5ml ONE (09:30)
[2019-02-07] MEDS ORDERED: Propofol 200mg/20ml IV ONE (09:30)
[2019-02-07] MEDS ORDERED: NS 500ML IVPB ONE (09:45)
--- NOTE | 2019-02-07 10:05 | Endoscopy Procedure Note ---
Endoscopy Procedure Note General Indication for Procedure: GIB Procedures Performed: EGD Operative Findings/Diagnosis: MWT Specimen: yes Pt Tolerated Procedure Well: Yes Estimated Blood Loss: none Anesthesia Anesthesiologist: mindy Anesthesia: MAC Inserted Devices Implant(s) used?: No GI Core Measures 50 yrs or older w/o bx or poly: Not Applicable 10yrs. F/U recommended: Not Applicable Wally Thomson MD February 07, 2019 10:05
--- NOTE | 2019-02-07 10:20 | NUR ---
NURSE NOTES: Notified Dr. Bueno of K 3.4 Mg 1.2, Dr. Bueno stated he will enter orders
--- NOTE | 2019-02-07 10:54 | Pulmonology Progress Note ---
Assessment/Plan Problems: (1) Upper GI bleed (2) Bipolar disorder (3) Gastrointestinal hemorrhage (4) Hypertension (5) Alcohol abuse (6) anxiety Assessment/Plan H/H stable EGD showed MWT symptomatic treatment continue current meds dc planning Subjective ROS Limited/Unobtainable: No Constitutional: Reports: no symptoms HEENT: Repors: no symptoms Respiratory: Reports: no symptoms Allergies: Coded Allergies: No Known Allergies (Unverified , 06/26/12) Objective Last 24 Hour Vital Signs Date Time Temp Pulse Resp B/P (MAP) Pulse Ox O2 Delivery O2 Flow Rate FiO2 02/07/19 10:35 97.3 88 15 127/77 100 Room Air 88 88 02/07/19 10:30 82 18 117/69 98 Room Air 82 82 02/07/19 10:20 89 14 113/85 100 Room Air 89 89 02/07/19 10:10 88 17 118/86 97 Room Air 88 88 02/07/19 10:02 98.2 87 18 114/82 100 Room Air 87 82 02/07/19 09:35 98.8 02/07/19 08:23 86 02/07/19 08:00 100.0 95 22 109/74 (86) 97 02/07/19 04:20 99.1 94 20 118/78 (91) 96 02/07/19 03:45 79 02/07/19 00:00 99.0 75 18 121/78 (92) 97 02/07/19 00:00 70 02/06/19 21:00 Room Air 02/06/19 20:00 99.0 86 18 108/72 (84) 99 02/06/19 20:00 81 02/06/19 16:00 98.5 81 20 102/68 (79) 96 02/06/19 16:00 64 02/06/19 12:00 75 02/06/19 12:00 98.1 90 18 110/76 (87) 97 Intake and Output 02/06/19 02/07/19 19:00 07:00 Intake Total 860 ml Balance 860 ml Intake Oral 240 ml Blood Product 320 ml Other 300 ml # Voids 5 4 # Bowel Movements 1 General Appearance: WD/WN HEENT: normocephalic, atraumatic Respiratory/Chest: chest wall non-tender, lungs clear Cardiovascular: normal peripheral pulses, normal rate Abdomen: normal bowel sounds, soft, non tender Extremities: no clubbing Skin: no ulcers Neurologic/Psychiatric: maintenance mgr II-XII grossly normal Laboratory Tests 02/07/19 05:35: White Blood Count 5.7, Red Blood Count 2.39L, Hemoglobin 8.5L, Hematocrit 24.5L , Mean Corpuscular Volume 102H, Mean Corpuscular Hemoglobin 35.5H, Mean Corpuscular Hemoglobin Concent 34.8, Red Cell Distribution Width 17.2H, Platelet Count 54L, Mean Platelet Volume 7.0, Neutrophils (%) (Auto) , Lymphocytes (%) (Auto) , Monocytes (%) (Auto) , Eosinophils (%) (Auto) , Basophils (%) (Auto) , Neutrophils % (Manual) [Pending], Lymphocytes % (Manual) [Pending], Platelet Estimate [Pending], Platelet Morphology [Pending], Prothrombin Time 12.6H, Prothromb Time International Ratio 1.2H, Activated Partial Thromboplast Time 22L, Sodium Level 141, Potassium Level 3.4L, Chloride Level 107, Carbon Dioxide Level 25, Anion Gap 9, Blood Urea Nitrogen 20H, Creatinine 1.0, Estimat Glomerular Filtration Rate > 60, Glucose Level 96, Calcium Level 8.4L, Phosphorus Level 2.9, Magnesium Level 1.2L, Total Bilirubin 0.9, Aspartate Amino Transf (AST/SGOT) 186H, Alanine Aminotransferase (ALT/SGPT ) 90H, Alkaline Phosphatase 52, Total Protein 6.5, Albumin 2.9L, Globulin 3.6, Albumin/Globulin Ratio 0.8L Current Medications Medications (Trade) Dose Ordered Sig/Benny Route PRN Reason Start Time Stop Time Status Last Admin Dose Admin Acetaminophen (Tylenol) 650 mg Q4H PRN ORAL fever 02/05/19 21:15 03/07/19 21:14 Al Hydroxide/Mg Hydroxide (Mylanta) 15 ml Q1H PRN ORAL gi upset 02/07/19 06:45 02/07/19 18:00 Atenolol (Tenormin) 25 mg DAILY ORAL 02/06/19 09:00 03/08/19 08:59 02/06/19 09:15 Atropine Sulfate (Atropine) 0.5 mg Q5M PRN IV bpm less than 45 02/07/19 06:45 02/07/19 18:00 Buspirone HCl (Buspar) 10 mg THREE TIMES A DAY ORAL 02/06/19 09:00 03/08/19 08:59 02/06/19 18:27 Dextrose (Dextrose 50%) 25 ml Q30M PRN IV Hypoglycemia 02/05/19 21:15 03/07/19 21:14 Dextrose (Dextrose 50%) 50 ml Q30M PRN IV Hypoglycemia 02/05/19 21:15 03/07/19 21:14 Diphenhydramine HCl (Benadryl) 25 mg Q15M PRN IVP Itching 02/07/19 06:45 02/07/19 18:00 Diphenhydramine HCl (Benadryl) 25 mg Q6H PRN ORAL Itching/Pruritis 02/05/19 21:15 03/07/19 21:14 Fentanyl Citrate (Sublimaze 100 mcg/2 mL) 25 mcg Q10M PRN IV Moderate Pain (Pain Scale 4-6) 02/07/19 06:45 02/07/19 18:00 Hydralazine HCl (Apresoline) 5 mg Q30M PRN IV SBP>160 OR___/DBP>90 OR___ 02/07/19 06:45 02/07/19 18:00 Midazolam HCl (Versed 2mg/2ml vial) 1 mg Q15M PRN IVP For Anxiety 02/07/19 06:45 02/07/19 18:00 Nitroglycerin (Ntg) 0.4 mg Q5M X 3 DOSES PRN SL Prn Chest Pain 02/05/19 21:15 03/07/19 21:14 Ondansetron HCl (Zofran) 4 mg Q1H PRN IVP Nausea & Vomiting 02/07/19 06:45 02/07/19 18:00 Ondansetron HCl (Zofran) 4 mg Q6H PRN IVP Nausea & Vomiting 02/05/19 21:15 03/07/19 21:14 Pantoprazole (Protonix) 40 mg EVERY 12 HOURS ORAL 02/07/19 21:00 03/09/19 20:59 Polyethylene Glycol (Miralax) 17 gm HSPRN PRN ORAL Constipation 02/05/19 21:15 03/07/19 21:14 Sucralfate (Carafate) 1 gm FOUR TIMES A DAY ORAL 02/07/19 13:00 03/09/19 12:59 Temazepam (Restoril) 15 mg HSPRN PRN ORAL Insomnia 02/05/19 21:15 02/12/19 21:14 02/06/19 02:01 Stephen Bueno MD February 07, 2019 10:54
[2019-02-07] MEDS ORDERED: PANTOPRAZOLE SO40 MG ORAL (10:57)
[2019-02-07] MEDS ORDERED: SUCRALFATE1 GM ORAL (10:57)
--- NOTE | 2019-02-07 11:10 | Physician Query ---
Clarification is required for compliance, coding accuracy, and to reflect severity of illness for this patient Dear Dr. Kelvin Valentine Date: 02/07/19 Deputy Manager/CDS Name: Lorri Aldrich Clinical Documentation states: HNP: 54-year-old white male, who presents with a chief complaint of vomiting blood... 1. Gastrointestinal hemorrhage. 2. Anemia, probable blood loss. Hb: 02/05 10.1, 02/06 7.8 Treatment: 1 unit blood transfusion on 02/06 Kindly specify the acuity of the probable blood loss anemia. PHYSICIAN RESPONSE: [] Acute blood loss anemia [] Acute on chronic blood loss anemia [] Chronic blood loss anemia [] Other: [] Unknown Present on Admission: [] Yes [] No [] Clinically Undetermined Physician signature Date Please also document in your Progress Notes and/or Discharge Summary and indicate if the condition was present on admission. JUJU
--- NOTE | 2019-02-07 11:13 | Immediate Post-Op Evaluation ---
Immediate Post-Op Evalulation Immediate Post-Op Evalulation Procedure: egd/bx Date of Evaluation: February 07, 2019 Time of Evaluation: 10:19 IV Fluids: 100ml 0.9ns Blood Products: none Estimated Blood Loss: negligible Blood Pressure Systolic: 114 Blood Pressure Diastolic: 82 Pulse Rate: 87 Respiratory Rate: 18 O2 Sat by Pulse Oximetry: 100 Temperature (Fahrenheit): 98.2 Pain Score (1-10): 0 Nausea: No Vomiting: No Complications none Patient Status: awake, reacts, patent Hydration Status: adequate Drug: Beatrice Serra MD February 07, 2019 11:13
--- NOTE | 2019-02-07 11:15 | 48 Hour Post Anesthesia Eval ---
Post Anesthesia Evaluation Procedure: egd/bx Date of Evaluation: February 07, 2019 Time of Evaluation: 10:21 Blood Pressure Systolic: 118 0: 82 Pulse Rate: 88 Respiratory Rate: 18 Temperature (Fahrenheit): 98.2 O2 Sat by Pulse Oximetry: 100 Airway: patent Nausea: No Vomiting: No Pain Intensity: 0 Hydration Status: adequate Cardiopulmonary Status: stable Mental Status/LOC: patient returned to baseline Post-Anesthesia Complications: none Follow-up care needed: N/A Beatrice Mayen MD February 07, 2019 11:15
--- NOTE | 2019-02-07 11:32 | Internal Med Progress Note ---
Subjective Date of Service: February 07, 2019 Physician Name Valentine,Kelvin Attending Physician Claus Mccormack MD Current Medications Medications (Trade) Dose Ordered Sig/Benny Route PRN Reason Start Time Stop Time Status Last Admin Dose Admin Acetaminophen (Tylenol) 650 mg Q4H PRN ORAL fever 02/05/19 21:15 03/07/19 21:14 Al Hydroxide/Mg Hydroxide (Mylanta) 15 ml Q1H PRN ORAL gi upset 02/07/19 06:45 02/07/19 18:00 Atenolol (Tenormin) 25 mg DAILY ORAL 02/06/19 09:00 03/08/19 08:59 02/06/19 09:15 Atropine Sulfate (Atropine) 0.5 mg Q5M PRN IV bpm less than 45 02/07/19 06:45 02/07/19 18:00 Buspirone HCl (Buspar) 10 mg THREE TIMES A DAY ORAL 02/06/19 09:00 03/08/19 08:59 02/06/19 18:27 Dextrose (Dextrose 50%) 25 ml Q30M PRN IV Hypoglycemia 02/05/19 21:15 03/07/19 21:14 Dextrose (Dextrose 50%) 50 ml Q30M PRN IV Hypoglycemia 02/05/19 21:15 03/07/19 21:14 Diphenhydramine HCl (Benadryl) 25 mg Q15M PRN IVP Itching 02/07/19 06:45 02/07/19 18:00 Diphenhydramine HCl (Benadryl) 25 mg Q6H PRN ORAL Itching/Pruritis 02/05/19 21:15 03/07/19 21:14 Fentanyl Citrate (Sublimaze 100 mcg/2 mL) 25 mcg Q10M PRN IV Moderate Pain (Pain Scale 4-6) 02/07/19 06:45 02/07/19 18:00 Hydralazine HCl (Apresoline) 5 mg Q30M PRN IV SBP>160 OR___/DBP>90 OR___ 02/07/19 06:45 02/07/19 18:00 Midazolam HCl (Versed 2mg/2ml vial) 1 mg Q15M PRN IVP For Anxiety 02/07/19 06:45 02/07/19 18:00 Nitroglycerin (Ntg) 0.4 mg Q5M X 3 DOSES PRN SL Prn Chest Pain 02/05/19 21:15 03/07/19 21:14 Ondansetron HCl (Zofran) 4 mg Q1H PRN IVP Nausea & Vomiting 02/07/19 06:45 02/07/19 18:00 Ondansetron HCl (Zofran) 4 mg Q6H PRN IVP Nausea & Vomiting 02/05/19 21:15 03/07/19 21:14 Pantoprazole (Protonix) 40 mg EVERY 12 HOURS ORAL 02/07/19 21:00 03/09/19 20:59 Polyethylene Glycol (Miralax) 17 gm HSPRN PRN ORAL Constipation 02/05/19 21:15 03/07/19 21:14 Sucralfate (Carafate) 1 gm FOUR TIMES A DAY ORAL 02/07/19 13:00 03/09/19 12:59 Temazepam (Restoril) 15 mg HSPRN PRN ORAL Insomnia 02/05/19 21:15 02/12/19 21:14 02/06/19 02:01 Allergies: Coded Allergies: No Known Allergies (Unverified , 06/26/12) ROS Limited/Unobtainable: No Constitutional: Reports: no symptoms HEENT: Reports: no symptoms Cardiovascular: Reports: no symptoms Respiratory: Reports: no symptoms Gastrointestinal/Abdominal: Reports: nausea, vomiting Genitourinary: Reports: no symptoms Neurologic/Psychiatric: Reports: no symptoms Subjective 54 YO M admitted with nausea, vomiting and hematemesis. Cover for Int Med-Dr Mccormack. Endoscopy 02/07/19 Objective Last Vital Signs Date Time Temp Pulse Resp B/P (MAP) Pulse Ox O2 Delivery O2 Flow Rate FiO2 02/07/19 11:15 88 18 100 02/07/19 10:35 97.3 127/77 Room Air Laboratory Tests Test 02/07/19 05:35 White Blood Count 5.7 K/UL (4.8-10.8) Red Blood Count 2.39 M/UL (4.70-6.10) L Hemoglobin 8.5 G/DL (14.2-18.0) L Hematocrit 24.5 % (42.0-52.0) L Mean Corpuscular Volume 102 FL (80-99) H Mean Corpuscular Hemoglobin 35.5 PG (27.0-31.0) H Mean Corpuscular Hemoglobin Concent 34.8 G/DL (32.0-36.0) Red Cell Distribution Width 17.2 % (11.6-14.8) H Platelet Count 54 K/UL (150-450) L Mean Platelet Volume 7.0 FL (6.5-10.1) Neutrophils (%) (Auto) % (45.0-75.0) Lymphocytes (%) (Auto) % (20.0-45.0) Monocytes (%) (Auto) % (1.0-10.0) Eosinophils (%) (Auto) % (0.0-3.0) Basophils (%) (Auto) % (0.0-2.0) Differential Total Cells Counted 100 Neutrophils % (Manual) 59 % (45-75) Lymphocytes % (Manual) 35 % (20-45) Monocytes % (Manual) 5 % (1-10) Eosinophils % (Manual) 1 % (0-3) Basophils % (Manual) 0 % (0-2) Band Neutrophils 0 % (0-8) Platelet Estimate Decreased L Platelet Morphology Normal Hypochromasia 2+ Anisocytosis 1+ Macrocytosis 1+ Spherocytes 2+ Prothrombin Time 12.6 SEC (9.30-11.50) H Prothromb Time International Ratio 1.2 (0.9-1.1) H Activated Partial Thromboplast Time 22 SEC (23-33) L Sodium Level 141 MMOL/L (136-145) Potassium Level 3.4 MMOL/L (3.5-5.1) L Chloride Level 107 MMOL/L (98-107) Carbon Dioxide Level 25 MMOL/L (21-32) Anion Gap 9 mmol/L (5-15) Blood Urea Nitrogen 20 mg/dL (7-18) H Creatinine 1.0 MG/DL (0.55-1.30) Estimat Glomerular Filtration Rate > 60 mL/min (>60) Glucose Level 96 MG/DL (74-106) Calcium Level 8.4 MG/DL (8.5-10.1) L Phosphorus Level 2.9 MG/DL (2.5-4.9) Magnesium Level 1.2 MG/DL (1.8-2.4) L Total Bilirubin 0.9 MG/DL (0.2-1.0) Aspartate Amino Transf (AST/SGOT) 186 U/L (15-37) H Alanine Aminotransferase (ALT/SGPT) 90 U/L (12-78) H Alkaline Phosphatase 52 U/L (46-116) Total Protein 6.5 G/DL (6.4-8.2) Albumin 2.9 G/DL (3.4-5.0) L Globulin 3.6 g/dL Albumin/Globulin Ratio 0.8 (1.0-2.7) L Intake and Output 02/06/19 02/07/19 19:00 07:00 Intake Total 860 ml Balance 860 ml Intake Oral 240 ml Blood Product 320 ml Other 300 ml # Voids 5 4 # Bowel Movements 1 Objective PHYSICAL EXAMINATION: GENERAL: The patient is a well-developed and well-nourished white male, in no apparent distress. HEENT: Eyes, pupils are equal and responsive to light and accommodation. Extraocular movements are intact. NECK: Supple without lymphadenopathy. CHEST: Lungs are clear to auscultation bilaterally without wheezes or rales. CARDIOVASCULAR: Regular rhythm and rate. S1, S2 are normal without murmurs, rubs, or gallops. ABDOMEN: Soft, nontender, and nondistended. Positive bowel sounds. No evidence of hepatosplenomegaly. Currently, no rebound or guarding noted. EXTREMITIES: Negative for clubbing, cyanosis, or edema. RECTAL/GENITAL: Refused. NEUROLOGIC: Cranial nerves II through XII are grossly intact without focal deficits. Motor strength is 5/5 bilaterally. Deep tendon reflexes are 2+ plantar. Assessment/Plan Assessment/Plan ASSESSMENT: This is a 54-year-old white male. 1. Gastrointestinal hemorrhage. 2. Anemia, probable blood loss. 3. Hypertension. 4. Major depression. 5. Hematemesis TREATMENT: 1. Gastrointestinal hemorrhage/elevated liver function tests. A Gastroenterology consultation has been obtained with Dr. Wally Thomson. S/P endoscopy 02/07/19-Follow GI recs. The patient minimizes alcohol use. The patient may have alcoholic gastritis versus esophageal varices. 2. Hypertension. Continue metoprolol as above. The patient is currently normotensive off medication. 3. Major depression. Continue BuSpar as above. Kelvin Valentine MD February 07, 2019 11:32
--- NOTE | 2019-02-07 12:47 | NUR ---
NURSE NOTES: Pt discharged home with all belongings. Pt signed all DC paperwork and was given RX copies of RX called in by Dr. Bueno. Both IV sites DC intact, ID band removed. Pt given paperwork to request Medical Records, stating he will fill out and send back to [facility]. Pt ambulatory and stable for discharge.
[2019-02-07] MEDS ORDERED: Sucralfate 1gm tab ORAL SCH (13:00)
--- NOTE | 2019-02-07 16:15 | Procedure Note ---
DATE OF PROCEDURE: 02/07/2019 SURGEON: Wally Thomson M.D. PROCEDURE: Upper endoscopy with biopsy. ANESTHESIA: Per Dr. Humphrey. INSTRUMENT: Olympus adult flexible upper endoscope. INDICATIONS: Upper GI bleeding. REASON FOR PROCEDURE: The procedure, risks, benefits, and possible consequences, including hemorrhage, aspiration, perforation and infection, and alternative treatments, were explained to the patient/legal guardian by Dr. Wally Thomson and the patient/legal guardian understood and accepted these risks. PROCEDURE IN DETAIL: After informed consent was obtained and the patient was adequately sedated, Olympus upper endoscope was advanced from mouth into the second portion of the duodenum and retroflexion was performed in the stomach. The patient has diffuse mild gastritis. Random biopsy from antrum was obtained to rule out H. pylori infection. The patient had evidence of Rebeka-Naranjo tear, at least two of them right at the GE junction and also evidence of minimum distal esophagitis. This Rebeka-Naranjo tear most probably was the source of the bleeding. At this time, the scope was retrieved and procedure was terminated. SUMMARY OF FINDINGS: 1. Rebeka-Naranjo tear x2. 2. Distal esophagitis. 3. Gastritis, status post biopsy. RECOMMENDATIONS: 1. GI soft diet. 2. Continue on Protonix twice a day. 3. Reflux measures. 4. Monitor hemoglobin and hematocrit, transfuse as needed. 5. The patient will need outpatient followup for colonoscopy. I want to thank, Dr. Claus Mccormack, for this kind referral. Wally Thomson M.D. DR: CHANTELLE JOB#: [id number] CC: Claus Mccormack M.D.; Fax#: [phone]
--- NOTE | 2019-02-08 10:40 | Physician Query ---
Clarification is required for compliance, coding accuracy, and to reflect severity of illness for this patient Dear Dr. Wally Thomson Date: 02/07/19 Bench Technician/CDS Name: Lorri Aldrich Clinical Documentation states: HNP: 54-year-old white male, who presents with a chief complaint of vomiting blood...1. Gastrointestinal hemorrhage. 2. Anemia, probable blood loss. Procedure note: The patient had evidence of Rebeka-Naranjo tear, at least two of themright at the GE junction and also evidence of minimum distal esophagitis. This Rebeka-Naranjo tear most probably was the source of the bleeding Hb: 02/05 10.1, 02/06 7.8 Treatment: 1 unit blood transfusion on 02/06 Kindly specify the acuity of the probable blood loss anemia. PHYSICIAN RESPONSE: [] Acute blood loss anemia [] Acute on chronic blood loss anemia [] Chronic blood loss anemia [] Other: [] Unknown Present on Admission: [] Yes [] No [] Clinically Undetermined Physician signature Date Please also document in your Progress Notes and/or Discharge Summary and indicate if the condition was present on admission. JUJU
--- NOTE | 2019-02-08 10:50 | Discharge Summary ---
Discharge Summary Discharge Summary _ DATE OF ADMISSION: 02/05/2019 DATE OF DISCHARGE: 02/07/2019 DISCHARGED BY: Dr. Mccormack REASON FOR ADMISSION: 54 years old male with past medical history of hypertension, anxiety, bipolar disorder, presented to emergency room for evaluation. Patient was brought by medical record retrieval specialist due to vomiting. Patient reported multiple episodes of vomiting over the last few days. He noticed streaks of blood in his vomitus just prior to presentation to emergency department . He denied abdominal pain. He denied any blood in stool. Patient reported occasional drinking of alcohol. Patient felt very anxious. He denied drug use. Upon evaluation patient was slightly tachycardic otherwise vital signs were stable. Laboratory work-up revealed leukocytosis WBC 14.4, hemoglobin 10.1, hematocrit 27.8. MCV 105. Platelet count 82 initially , and when CBC repeated -54. INR 1.1. Stable electrolytes. BUN 39 creatinine 1.4. Glucose 217. Total bilirubin 1.4 9, direct bilirubin 0.4. AST 83, ALT 49. Albumin 3.0. Lipase 216. Amylase 104. Serum alcohol less than 3. Significant drop in hemoglobin noted compared to prior ER visit along with thrombocytopenia and vomiting. Patient subsequently was admitted for upper GI bleeding and further evaluation and management. CONSULTANTS: pulmonary/deep fat cook fry Dr. Bueno GI specialist Dr. Thomson [facility]SE: Patient admitted to telemetry floor. Patient initially kept n.p.o. and started on the IV hydration / banana bag with folic acid and thiamine. Patient started on PPI. GI consult was requested. Librium was on board as needed. The next day hemoglobin down to 7.8, hematocrit 22.1. Patient undergone transfusion of 1 unit of packed red blood cells . Patient subsequently undergone EGD , which revealed Rebeka-Naranjo tear x2, distal esophagitis and gastritis , status post biopsy. According to GI specialist , Rebeka-Naranjo tears were most probably the source of bleeding. Patient slowly started on diet and was advanced to soft as tolerated. Patient was continued on Protonix twice a day and Carafate added. Reflux measures were maintained. Biopsy results still pending at time of this dictation. Patient will need outpatient follow-up for colonoscopy. Supportive care provided. Antiemetic very on board as needed. Hemoglobin and hematocrit were closely monitored and prior to discharge hemoglobin 8.5, hematocrit 24.5. No further evidence of bleeding. LFT down to normal. Patient was counseled on abstinence from alcohol. Blood pressure was managed with atenolol and remained stable. Anxiolytic from home/BuSpar -resumed. Bowel regimen instituted. Pain management was addressed as needed. Patient stabilized, no further bleeding. Patient was stable for discharge home.Outpatient follow-up for colonoscopy. FINAL DIAGNOSES: Gastrointestinal hemorrhage Status post upper endoscopy with biopsy Rebeka-Naranjo tear x2, likely the source of bleeding Distal esophagitis Gastritis, status post biopsy Anemia, likely due to acute blood loss secondary to Rebeka-Naranjo tear Hypertension Alcohol abuse Anxiety Bipolar disorder DISCHARGE MEDICATIONS: See Medication Reconciliation list. DISCHARGE INSTRUCTIONS: Patient was discharged home . Follow up with primary care provider in one week. Outpatient colonoscopy recommended. I have been assigned to dictate discharge summary for this account. I was not involved in the patient's management. Chanel Verma NP February 08, 2019 10:50
--- NOTE | 2019-02-08 19:42 | Diagnostic Imaging Report ---
APPROVED REPORT CPT Code: 33851 Present Symptoms Comments: BILATERAL LEGS PAIN. BILATERAL: Imaging reveals a patent deep venous system bilaterally. There is no evidence of thrombus within the femoral, popliteal or tibial segments. The greater saphenous veins are also within normal limits. Doppler indicates normal spontaneous flow within these segments.
== END 2019-02-07 14:45 | disposition home or self-care (01) | DRG 369 ==
LOC: EDBD 19:56 → EMR 20:32 → 2E 20:49 → EDBEDREQ 21:01
PROC: 30233N1 Transfusion of Nonautologous Red Blood Cells into Peripheral Vein, Percutaneous Approach (ICD-10-PCS; principal; 2019-02-06)
PROC: 0DB78ZX Excision of Stomach, Pylorus, Via Natural or Artificial Opening Endoscopic, Diagnostic (ICD-10-PCS; 2019-02-07)
DX: K22.6 Gastro-esophageal laceration-hemorrhage syndrome (principal); D62 Acute posthemorrhagic anemia; F31.9 Bipolar disorder, unspecified; I10 Essential (primary) hypertension; F41.9 Anxiety disorder, unspecified; K20.9 Esophagitis, unspecified; K29.70 Gastritis, unspecified, without bleeding; F10.10 Alcohol abuse, uncomplicated
CPT/HCPCS: 36415; 80053; 80329; 82150; 82248; 83690; 83735; 84100; 85007; 85025; 85610; 85730; 86850; 86900; 86901; 86920; 93005; 93970; 94003; 94150; 96361; 96374; 96375; 99285; J2405

== ENCOUNTER 2019-05-01 02:01 | Emergency (ER) | payer MEDICARE, MEDICAID ==
[~2019-05-01] VITALS: Ht 170.2 cm; Wt 68.0 kg
[~2019-05-01 02:01] MED LIST changes: +PANTOPRAZOLE SO40 MG ORAL; +SUCRALFATE1 GM ORAL
[2019-05-01 02:12] VITALS: BP 153/98
--- NOTE | 2019-05-01 02:21 | Emergency Room Report ---
History of Present Illness General Chief Complaint: Medication Refill Source: Patient, Medical Record Present Illness HPI This is a 54-year-old male who with history of alcohol abuse. He presents with chief complaint of epigastric pain. He said he was admitted here and was given an acid tax examiner. He said that helped. He wants a refill on that medication. Denies any diarrhea. Had vomiting yesterday and no blood in it. No vomiting today. Still using alcohol. Similar symptom in the past. Denies any other complaint. Allergies: Coded Allergies: No Known Allergies (Unverified , 06/26/12) Patient History Past Medical History: see triage record, old chart reviewed Past Surgical History: none Pertinent Family History: none Social History: Reports: alcohol use Immunizations: other Reviewed Nursing Documentation: PMH: Agreed; PSxH: Agreed Nursing Documentation-PMH Hx Cardiac Problems: Yes Hx Hypertension: Yes Hx Neurological Problems: Yes - ANXIETY, bipolar Review of Systems Eye: Denies: eye pain, blurred vision ENT: Denies: ear pain, nose congestion, throat swelling Respiratory: Denies: cough, shortness of breath Cardiovascular: Denies: chest pain, palpitations Gastrointestinal: Reports: abdominal pain; Denies: diarrhea, nausea, vomiting Musculoskeletal: Denies: back pain, joint pain Skin: Denies: rash Neurological: Denies: headache, numbness Endocrine: Denies: increased thirst, increased urine Hematologic/Lymphatic: Denies: easy bruising All Other Systems: negative except mentioned in HPI Physical Exam Vital Signs Date Time Temp Pulse Resp B/P (MAP) Pulse Ox O2 Delivery O2 Flow Rate FiO2 05/01/19 02:04 98.2 105 18 161/100 (120) 98 Room Air Vitals with high blood pressure Sp02 EP Interpretation: reviewed, normal General Appearance: well appearing, no apparent distress, alert Head: normocephalic, atraumatic Eyes: bilateral eye PERRL, bilateral eye EOMI ENT: hearing grossly normal, normal pharynx Neck: full range of motion, supple, no meningismus Respiratory: chest non-tender, lungs clear, normal breath sounds Cardiovascular #1: regular rate, rhythm, no murmur Gastrointestinal: normal bowel sounds, non tender, no mass, no organomegaly, no bruit, non-distended Musculoskeletal: back normal, gait/station normal, normal range of motion Psychiatric: mood/affect normal Medical Decision Making Diagnostic Impression: Primary Impression: Alcoholic gastritis without bleeding Qualified Codes: K29.20 - Alcoholic gastritis without bleeding ER Course Patient with alcoholic gastritis. No evidence of any active bleeding. Will discharge home. Last Vital Signs Date Time Temp Pulse Resp B/P (MAP) Pulse Ox O2 Delivery O2 Flow Rate FiO2 05/01/19 02:12 98.2 100 18 153/98 98 Room Air Status: unchanged Disposition: HOME, SELF-CARE Condition: Stable Scripts Pantoprazole* (PANTOPRAZOLE*) 40 Mg Tablet. 40 MG ORAL DAILY, #30 TAB Prov: Brendan Smith MD 05/01/19 Referrals: NOT CHOSEN IPA/,REFERRING (PCP) Patient Instructions: Medicine Refill at the Emergency Department Additional Instructions: Stop using alcohol. Follow-up with rehab in a week. Follow-up with your doctor in a week. Return if worse. Brendan Smith MD May 01, 2019 02:21
[2019-05-01] MEDS ORDERED: PANTOPRAZOLE SO40 MG ORAL (02:23)
[2019-05-01 02:31] VITALS: BP 153/98
== END 2019-05-01 02:30 | disposition home or self-care (01) ==
LOC: EMR 02:16
DX: K29.20 Alcoholic gastritis without bleeding (principal); F41.9 Anxiety disorder, unspecified; F31.9 Bipolar disorder, unspecified; I10 Essential (primary) hypertension
CPT/HCPCS: 99282

== ENCOUNTER 2019-08-06 01:36 | Emergency (ER) | payer MEDICARE, MEDICAID ==
[~2019-08-06] VITALS: Ht 175.3 cm; Wt 54.0 kg
[2019-08-06 01:55] VITALS: BP 125/80
--- NOTE | 2019-08-06 01:58 | NUR ---
ED Nurse Note: Patient walked in to ER c/o insomnia. States " as soon as I am falling in sleep, somebody knoking in my head.'' patient presented anxious, AAO x4, VSS at this time. Mentioned that wants to be checked up for stomach pain.
--- NOTE | 2019-08-06 02:02 | Emergency Room Report ---
History of Present Illness General Chief Complaint: General Complaint Source: Patient, Medical Record Present Illness HPI Patient presents with complaints of epigastric discomfort feeling of a spasming sensation Denies any headache denies any chest pain denies any vomiting however he does feel nauseated Denies any lower abdominal pain denies any recent trauma Patient has had previous upper endoscopy at this facility [place] tear along with gastritis At this time denies any vomiting of blood He does report drinking alcohol still Allergies: Coded Allergies: No Known Allergies (Unverified , 06/26/12) Patient History Past Medical History: see triage record Reviewed Nursing Documentation: PMH: Agreed; PSxH: Agreed Nursing Documentation-PMH Past Medical History: No History, Except For Hx Cardiac Problems: Yes Hx Hypertension: Yes Hx Neurological Problems: Yes - ANXIETY, bipolar Review of Systems All Other Systems: negative except mentioned in HPI Physical Exam Vital Signs Date Time Temp Pulse Resp B/P (MAP) Pulse Ox O2 Delivery O2 Flow Rate FiO2 08/06/19 01:42 98.4 87 16 125/80 (95) 97 Room Air Sp02 EP Interpretation: reviewed, normal General Appearance: well appearing, no apparent distress Head: normocephalic, atraumatic Eyes: bilateral eye PERRL, bilateral eye EOMI ENT: hearing grossly normal, normal pharynx, TMs + canals normal, uvula midline Neck: full range of motion, supple, no meningismus, no bony tend Respiratory: lungs clear, normal breath sounds, no rhonchi, no respiratory distress, no retraction, no accessory muscle use Cardiovascular #1: normal peripheral pulses, regular rate, rhythm, no edema, no gallop, no JVD, no murmur Gastrointestinal: normal bowel sounds, non tender, soft, no mass, no organomegaly, non-distended, no guarding, no hernia, no pulsatile mass, no rebound Musculoskeletal: normal inspection Neurologic: motor strength/tone normal, revenue collector III-XII nml as tested, oriented x3 , sensory intact, responsive Psychiatric: mood/affect normal Skin: no rash Lymphatic: normal inspection, no adenopathy Medical Decision Making Diagnostic Impression: Primary Impression: Nausea Additional Impression: Alcohol abuse ER Course Given the patient's history and presentation given the past medical history review and patient's upper endoscopy multiple differentials including but not limited to, perforated ulcer, gastritis, enteritis all considered Patient's blood work shows a normal hemoglobin count there has been no reports of any vomiting Or diarrhea Patient had felt better Prior to having a final discussion and final disposition Patient had left the emergency room Labs Test 08/06/19 02:08 08/06/19 02:20 Sodium Level 140 MMOL/L (136-145) Potassium Level 3.6 MMOL/L (3.5-5.1) Chloride Level 104 MMOL/L (98-107) Carbon Dioxide Level 30 MMOL/L (21-32) Anion Gap 6 mmol/L (5-15) Blood Urea Nitrogen 11 mg/dL (7-18) Creatinine 1.1 MG/DL (0.55-1.30) Estimat Glomerular Filtration Rate > 60 mL/min (>60) Glucose Level 102 MG/DL (74-106) Calcium Level 8.7 MG/DL (8.5-10.1) Total Bilirubin 0.4 MG/DL (0.2-1.0) Aspartate Amino Transf (AST/SGOT) 68 U/L (15-37) Alanine Aminotransferase (ALT/SGPT) 62 U/L (12-78) Alkaline Phosphatase 68 U/L (46-116) Total Protein 8.4 G/DL (6.4-8.2) Albumin 3.9 G/DL (3.4-5.0) Globulin 4.5 g/dL Albumin/Globulin Ratio 0.9 (1.0-2.7) Lipase 238 U/L (73-393) Serum Alcohol 267 mg/dL White Blood Count 10.9 K/UL (4.8-10.8) Red Blood Count 3.85 M/UL (4.70-6.10) Hemoglobin 14.2 G/DL (14.2-18.0) Hematocrit 39.8 % (42.0-52.0) Mean Corpuscular Volume 103 FL (80-99) Mean Corpuscular Hemoglobin 36.9 PG (27.0-31.0) Mean Corpuscular Hemoglobin Concent 35.7 G/DL (32.0-36.0) Red Cell Distribution Width 13.0 % (11.6-14.8) Platelet Count 249 K/UL (150-450) Mean Platelet Volume 5.0 FL (6.5-10.1) Neutrophils (%) (Auto) 38.4 % (45.0-75.0) Lymphocytes (%) (Auto) 51.2 % (20.0-45.0) Monocytes (%) (Auto) 8.2 % (1.0-10.0) Eosinophils (%) (Auto) 1.2 % (0.0-3.0) Basophils (%) (Auto) 0.9 % (0.0-2.0) Last Vital Signs Date Time Temp Pulse Resp B/P (MAP) Pulse Ox O2 Delivery O2 Flow Rate FiO2 08/06/19 01:55 98.4 16 125/80 97 Room Air 08/06/19 01:55 87 Status: improved Disposition: HOME, SELF-CARE Condition: Improved Referrals: NOT CHOSEN IPA/MD,REFERRING (PCP) Additional Instructions: Patient is provided with the discharge instructions notified to follow up with primary doctor in the next 2-3 days otherwise return to the er with any worsening symptoms. Please note that this report is being documented using DRAGON technology. This can lead to erroneous entry secondary to incorrect interpretation by the dictating instrument. Lex Abdullahi DO Aug 06, 2019 02:02
[2019-08-06 02:36] LABS: BASOPHILS % (AUTO) 0.9 % (0.0-2.0); EOSINOPHILS % (AUTO) 1.2 % (0.0-3.0); HEMATOCRIT 39.8 % (42.0-52.0); HEMOGLOBIN 14.2 G/DL (14.2-18.0); LYMPHOCYTES % (AUTO) 51.2 % (20.0-45.0); MEAN CORPUSCULAR VOLUME 103 FL (80-99); MONOCYTES % (AUTO) 8.2 % (1.0-10.0); NEUTROPHILS % (AUTO) 38.4 % (45.0-75.0); PLATELET COUNT 249 K/UL (150-450); RED BLOOD COUNT 3.85 M/UL (4.70-6.10); WHITE BLOOD COUNT 10.9 K/UL (4.8-10.8)
[2019-08-06 02:39] LABS: ALANINE AMINOTRANSFERASE 62 U/L (12-78); ALBUMIN 3.9 G/DL (3.4-5.0); ALBUMIN/GLOBULIN RATIO 0.9 (1.0-2.7); ALKALINE PHOSPHATASE 68 U/L (46-116); ANION GAP 6 mmol/L (5-15); ASPARTATE AMINO TRANSFERASE 68 U/L (15-37); BILIRUBIN,TOTAL 0.4 MG/DL (0.2-1.0); BLOOD UREA NITROGEN 11 mg/dL (7-18); CALCIUM 8.7 MG/DL (8.5-10.1); CARBON DIOXIDE 30 MMOL/L (21-32); CHLORIDE 104 MMOL/L (98-107); CREATININE 1.1 MG/DL (0.55-1.30); POTASSIUM 3.6 MMOL/L (3.5-5.1); SODIUM 140 MMOL/L (136-145)
--- NOTE | 2019-08-06 02:50 | NUR ---
ED Nurse Note: Patient walked out from ER, states do not know why is he here. Refused to wait for paper work, prescriptions. Patient was able to walked out with steady gait, took all belongings. DANICA x4, VSS at this time.
--- NOTE | 2019-08-06 02:50 | NUR ---
Found a cell phone and one jacinto on the bed from which patient left. Attempted to call his home - (number on a face sheet)-number disconnected. Cell phone and a jacinto placed in a specimen bag with patients label on it in case patient comes back.
== END 2019-08-06 02:50 | disposition home or self-care (01) ==
LOC: EMR 01:51
DX: R11.0 Nausea (principal); F10.10 Alcohol abuse, uncomplicated; I10 Essential (primary) hypertension; F31.9 Bipolar disorder, unspecified; F41.9 Anxiety disorder, unspecified
CPT/HCPCS: 36415; 80053; 83690; 85025; 99283; G0480

== ENCOUNTER 2020-04-18 18:46 | Emergency (ER) | payer MEDICARE, MEDICAID ==
[~2020-04-18] VITALS: Ht 172.7 cm; Wt 90.7 kg
--- NOTE | 2020-04-18 18:46 | Emergency Room Report ---
History of Present Illness General Chief Complaint: Pain Source: Patient Present Illness HPI 55-year-old male with past medical history bipolar disorder and alcoholism brought in by ambulance with complaint of left lower extremity swelling x several days. Denies trauma, fall, twisted ankle, fever, chills, chest pain,abd pain, back pain, melena, hematochezia, hematemesis, shortness of breath or other complaints Denies recent trauma/immobilization/surgery, history of blood clot, hemoptysis The patient's symptoms were gradual onset, severity was moderate, duration since 2 days. Quality: Swollen Past medical history: alcoholism, bipolar disorder Past surgical history: Denies Smoking: Occasional Alcohol use: Occasional Drug use: Denies Review of systems: CONST: No fevers or chills, No night sweats PULMONARY: No productive cough, No shortness of breath CARDIAC: No chest pain, No palpitations GI: No vomiting, No diarrhea , No melena_or_BRBPR : No dysuria, No hematuria, No discharge NEURO: No new_focal_weakness_or_numbness, No confusion, No vision changes 14 point Review of Systems is otherwise negative except per HPI Physical Exam: GENERAL: Awake_alert_ nontoxic, no acute distress Spo2 98% on RA -normal EYES: Extraocular muscles are intact. Conjunctivae clear. Lids without swelling ENT: External nose and ear normal_in_appearance. Oropharynx clear. Head_ atraumatic, Moist_oral_mucosa NECK: No JVD. No meningismus. No thyromegaly. Supple. Trachea midline RESP: Normal respiratory effort. Symmetric rise. No stridor. Clear_to_ auscultation_No_rales_No_wheezes CARDIAC: Regular rate and regular rhythm on_auscultation No_significant pedal edema. ABDOMEN: Soft. Nondistended. Nontender_No_rebound_or_guarding. MSK: Normal muscle tone, without rigidity. Extremities without asymmetric deformity or swelling. LEFT ANKLE EXAM Minimal LLE swelling to dorsal foot and distal Tib/Fib No significant pain with passive range of motion Lateral malleolus: no tenderness / swelling / ecchymoses Medial malleolus: no tenderness / swelling / ecchymoses Dorsalis pedis pulse: 2+ Capillary refill: <3 seconds in all toes All toes: full range of motion without any tenderness / swelling / deformity / evidence of infection Base of the fifth metatarsal: no tenderness / swelling / ecchymoses Navicular: no tenderness / swelling / ecchymoses Calcaneus: no tenderness / swelling / ecchymoses Arch of the foot: no tenderness / swelling / ecchymoses Midfoot: no tenderness / swelling / ecchymoses Strength of dorsal / plantar flexion: normal 5/5, no pain with range of motion SKIN: Warm and dry. No visible cyanosis or pallor Superficial abrasion to the left medial malleolus. No laceration. No cellulitis. NEUROLOGIC: Alert, oriented x3. Motor_and_sensation_grossly_intact. No truncal ataxia. Gait_normal Psych: Normal mood and affect, normal judgment and insight - COORDINATION OF CARE Case was discussed with: Patient Any labs and imaging that were ordered were interpreted as part of the medical decision making: Medical Decision Making/Plan: Differential diagnosis includes renal failure, congestive heart failure, arthritis, venous stasis without evidence of: Soft tissue infection such as cellulitis or abscess, compartment syndrome, septic arthritis, arterial occlusion, deep venous thrombosis, among others. Patient appears hemodynamically stable. Afebrile. On examination of the left lower extremity he has trace swelling involving the distal tib-fib and dorsal left foot. There is a superficial abrasion to the left medial malleolus without cellulitis or laceration. Patient has full motion of the left ankle without significant pain with active or passive range of motion. X-rays of the left lower extremity are negative for acute fracture or dislocation. CXR is negative for CHF. Shows mild atx without pneumonia or pleural effusion. Duplex ultrasound of the left lower extremity is negative for DVT. Troponin and BNP are negative. Creatinine is within normal limits. No evidence of CHF or CKD. LFTs are unremarkable. Distally the patient has capillary refill <2 seconds and strong pulses. There is no pallor or pain out of proportion to exam. There is mild swelling with negative Homans sign No evidence of arterial occlusion or deep venous thrombosis. The associated joints have full range of motion without any significant pain or restriction in mobility. There is no crepitus or pain out of proportion to exam and the patient is afebrile and nontoxic. There is no overlying significant redness, induration, tenderness, pus, or evidence of drainable fluid collection. No evidence of septic arthritis, necrotizing fasciitis, or soft tissue infection such as abscess or cellulitis. No trauma, no injury , compartments are soft, the patient is able to bear weight and has no neurologic deficits. No evidence of fracture, dislocation or compartment syndrome at this time. Patient may have venous stasis versus lymphedema versus arthritis NOS No evidence of any emergent cause of patient's symptoms Pertinent results reviewed with the patient. I educated the patient on the current treatment plan including the risks, benefits, and alternatives. I also discussed the extent and limitations of the current evaluation. The patient expressed understanding and agreement with plan. I recommended PMD follow-up within 1-2 days. Also advised that the patient return to the Emergency Department as soon as possible if they experience any new, persistent, or worsening symptoms. Allergies: Coded Allergies: No Known Allergies (Unverified , 06/26/12) COVID-19 Screening Contact w/high risk pt: No Experienced COVID-19 symptoms?: No COVID-19 Testing performed [place]: No Physical Exam Vital Signs Date Time Temp Pulse Resp B/P (MAP) Pulse Ox O2 Delivery O2 Flow Rate FiO2 04/18/20 18:40 98.8 107 16 147/91 (109) 97 Sp02 EP Interpretation: reviewed, normal Medical Decision Making Diagnostic Impression: Primary Impression: Left ankle swelling Additional Impressions: Abrasion, left ankle, initial encounter Lymphedema Rhythm Strip Diag. Results Rhythm Strip Time: 19:50 EP Interpretation: yes Rate: 76 Rhythm: NSR, no PVC's, no ectopy Chest X-Ray Diagnostic Results Chest X-Ray Diagnostic Results : PA Scribe Text Chest X-Ray: Views: 1 view(s) Indication: Leg swelling Findings: Normal heart size. Mediastinum normal. No infiltrate. Impression: Atelectasis, no pneumonia, no pneumothorax The X-ray(s) were independently viewed and interpreted contemporaneously Electronically signed by Elaina de paz DO Left foot X-ray: Views: 3 view(s) No fracture. Normal alignment. Soft tissues normal. Joint spaces normal. Indication: Pain Impression: no acute disease The X-ray(s) were independently viewed and interpreted contemporaneously - Electronically signed by Elaina de paz DO L tib fib X-ray: Views: 3 view(s) No fracture. Normal alignment. Soft tissues normal. Joint spaces normal. Indication: Pain Impression: no acute disease The X-ray(s) were independently viewed and interpreted contemporaneously - Electronically signed by Elaina de paz, CT/MRI/US Diagnostic Results CT/MRI/US Diagnostic Results : Impression US Duplex Left Lower Extremity Veins CLINICAL HISTORY: SWELL FINDINGS: Deep veins: Unremarkable. No DVT in the visualized common femoral, femoral, proximal deep femoral or popliteal veins. The veins demonstrate normal color flow, are normally compressible, with normal phasic flow and/or augmentation response. Superficial veins: No thrombus in the visualized segments of the greater saphenous vein. Soft tissues: No acute findings. IMPRESSION: No DVT demonstrated in the left lower extremity Reevaluation Time: 20:00 Last Vital Signs Date Time Temp Pulse Resp B/P (MAP) Pulse Ox O2 Delivery O2 Flow Rate FiO2 04/18/20 18:40 98.8 107 16 147/91 (109) 97 Status: improved Disposition: HOME, SELF-CARE Admit Decision Time: 19:51 Condition: Stable Scripts Naproxen* (NAPROXEN*) 500 Mg Tablet.dr 500 MG ORAL TWICE A DAY for 10 Days, #20 TAB Prov: Elaina Gomez D.O. 04/18/20 Additional Instructions: Instructions for patient/interventional cardiologist: Follow up with your physician in 1-2 days. Follow-up with your doctor sooner if your condition requires a more timely clinical reevaluation. Return to the emergency department immediately if you feel that your condition is worsening or if you have any new or concerning symptoms. Review your discharge instructions and take any prescriptions given as instructed. Elaina Gomez D.O. Apr 18, 2020 18:46
[2020-04-18 18:51] VITALS: BP 142/90
[2020-04-18] MEDS ORDERED: Tetanus/Diptheria/Pertussis IM ONE (19:15)
[2020-04-18 19:17] LABS: HEMATOCRIT 36.7 % (42.0-52.0); HEMOGLOBIN 12.2 G/DL (14.2-18.0); MEAN CORPUSCULAR VOLUME 112 FL (80-99); PLATELET COUNT 153 K/UL (150-450); RED BLOOD COUNT 3.27 M/UL (4.70-6.10); WHITE BLOOD COUNT 8.9 K/UL (4.8-10.8)
[2020-04-18 19:32] LABS: INR 1.1 (0.9-1.1)
--- NOTE | 2020-04-18 19:34 | Diagnostic Imaging Report ---
EXAM: XR Left Foot Complete, 3 or More Views CLINICAL HISTORY: PAIN TECHNIQUE: Frontal, lateral and oblique views of the left foot. COMPARISON: No relevant prior studies available. FINDINGS: Bones/joints: No acute fracture. Plantar and posterior calcaneal spurs. Soft tissues: Soft tissue swelling. No radiodense foreign body. IMPRESSION: No acute fracture.
--- NOTE | 2020-04-18 19:35 | Diagnostic Imaging Report ---
EXAM: XR Left Tibia and Fibula, 2 Views CLINICAL HISTORY: PAIN TECHNIQUE: Frontal and lateral views of the left tibia and fibula. COMPARISON: No relevant prior studies available. FINDINGS: Bones/joints: No acute fracture. Mild periosteal thickening related to the tibia and fibula. Plantar and posterior calcaneal spurs. Soft tissues: No radiodense foreign body. IMPRESSION: No fracture.
--- NOTE | 2020-04-18 19:36 | Diagnostic Imaging Report ---
EXAM: US Duplex Left Lower Extremity Veins CLINICAL HISTORY: HENRI TECHNIQUE: Real-time duplex ultrasound scan of the left lower extremity veins integrating B-mode two-dimensional vascular structure, Doppler spectral analysis, color flow Doppler imaging and compression. COMPARISON: No relevant prior studies available. FINDINGS: Deep veins: Unremarkable. No DVT in the visualized common femoral, femoral, proximal deep femoral or popliteal veins. The veins demonstrate normal color flow, are normally compressible, with normal phasic flow and/or augmentation response. Superficial veins: No thrombus in the visualized segments of the greater saphenous vein. Soft tissues: No acute findings. IMPRESSION: No DVT demonstrated in the left lower extremity
[2020-04-18 19:47] LABS: ANION GAP 11 mmol/L (5-15); BLOOD UREA NITROGEN 9 mg/dL (7-18); CALCIUM 9.2 MG/DL (8.5-10.1); CARBON DIOXIDE 29 MMOL/L (21-32); CHLORIDE 101 MMOL/L (98-107); CREATININE 1.1 MG/DL (0.55-1.30); POTASSIUM 3.7 MMOL/L (3.5-5.1); SODIUM 141 MMOL/L (136-145)
[2020-04-18 19:51] LABS: ALANINE AMINOTRANSFERASE 56 U/L (12-78); ALBUMIN 3.5 G/DL (3.4-5.0); ALBUMIN/GLOBULIN RATIO 0.7 (1.0-2.7); ALKALINE PHOSPHATASE 87 U/L (46-116); ASPARTATE AMINO TRANSFERASE 133 U/L (15-37); BILIRUBIN,TOTAL 0.5 MG/DL (0.2-1.0)
[2020-04-18] MEDS ORDERED: NAPROXEN500 M1 ORAL (19:53)
--- NOTE | 2020-04-18 19:54 | Diagnostic Imaging Report ---
EXAM: XR Chest, 1 View CLINICAL HISTORY: SWELL TECHNIQUE: Frontal view of the chest. COMPARISON: No relevant prior studies available. FINDINGS: Lungs: Reduced lung volumes with mild left basilar atelectasis/pneumonitis. Pleural space: Unremarkable. No pneumothorax. Heart: Unremarkable. No cardiomegaly. Mediastinum: Unremarkable. Bones/joints: No acute fracture. IMPRESSION: Reduced lung volumes with mild left basilar atelectasis/pneumonitis.
[2020-04-18 20:15] VITALS: BP 138/82
== END 2020-04-18 20:15 | disposition home or self-care (01) ==
LOC: EDBD 18:46 → EMR 19:10
DX: R22.42 Localized swelling, mass and lump, left lower limb (principal); S90.512A Abrasion, left ankle, initial encounter; I89.0 Lymphedema, not elsewhere classified; X58.XXXA Exposure to other specified factors, initial encounter; Y92.9 Unspecified place or not applicable; F31.9 Bipolar disorder, unspecified; Z23 Encounter for immunization
CPT/HCPCS: 36415; 71045; 80053; 83880; 84484; 85007; 85025; 85610; 90471; 90715; 93971; 99284